=== PATIENT | male | born 1940 | race Two or more races ===

== ENCOUNTER 2018-02-11 14:48 | Inpatient (IN) | payer SELFPAY ==
[2018-02-11 15:43] LABS: Hematocrit 29 % (42-52); Hemoglobin 8.7 g/dl (14.0-18.0); Mean Corpuscular HGB Conc 30 g/dl (31-36); Mean Corpuscular Hemoglobin 18 pg (27-31); Mean Corpuscular Volume 61 fL (80-94); Red Blood Count 4.76 10^6/ul (4.0-5.4); Red Cell Distribution Width 23 % (10.5-15); White Blood Count 4.8 10^3/ul (3.5-10.8)
[2018-02-11 16:39] LABS: Platelet Count 152 10^3/ul (150-450)
[2018-02-11 16:40] LABS: ABS Basophils 0 10^3/ul (0-0.2); ABS Eosinophils 0.1 10^3/ul (0-0.6); ABS Lymphocytes 1.2 10^3/ul (1.0-4.8); ABS Monocytes 0.5 10^3/ul (0-0.8); ABS Neutrophils 2.9 10^3/ul (1.5-7.7); ABS Nucleated RBC 0 10^3/ul; Eosinophil % 2.9 % (0-6); Lymphocyte % 25.3 % (25-47); Nucleated Red Blood Cells % 0
[2018-02-11] MEDS ORDERED: Furosemide IV* 10 MG/ML VIAL (40 MG) IV SLOW PU ONE (17:03)
[2018-02-11] MEDS ORDERED: Nitroglycerin 2% OINT* 1 GM PAK TOPICAL ONE (17:03)
[2018-02-11] MEDS ORDERED: Aspirin 81 mg CHEW TAB* 81 MG TAB.CHEW PO ONE (17:03)
--- NOTE | 2018-02-11 19:16 | ED ---
Lukas Louise Jennifer scribed for Raghavendra Bautista MD on 02/11/18 at 1650 . HPI Chest Pain - HPI Summary HPI Summary: The patient is a 77 year old male who presents with chest pain heaviness for three weeks and non-productive cough for two weeks. Patient reports the chest heaviness is intermittent but can last 3-4 days. He additionally complains of bilateral leg swelling and knee pain. He denies fever, chills. The patient recently moved from [facility]. Patient was accompanied by his and son. He reports he has had fluid in his lungs before. Patients medications include: Flavax, aspirin, omeprazole, NTG, cholesterol medication, Bisoprolol, and Lasix 40 Spironolactone 50. The patient ran out of his water pills about 10-12 days ago. LEVEL 5 CAVEAT: PATIENT DOES NOT SPEAK RUSSIAN. - History of Current Complaint Chief Complaint: EDChestPainROMI Time Seen by Provider: 02/11/18 15:10 Hx Obtained From: P[employer]aker Onset/Duration: Started Weeks Ago - 2-3 weeks, Still Present Timing: Intermittent, Lasting Days - 3-4 days Initial Severity: Severe Current Severity: Severe Pain Intensity: 8 Pain Scale Used: 0-10 Numeric - Allergy/Home Medications Allergies/Adverse Reactions: Allergies Allergy/AdvReac Type Severity Reaction Status Date / Time No Known Allergies Allergy Verified 02/11/18 14:56 Home Medications: Home Medications Aspirin 81 mg CHEW TAB* [Aspirin Low Dose TAB*] 81 mg PO DAILY 02/11/18 [ History Confirmed 02/11/18] Bisoprolol TAB* [Zebeta TAB*] 2.5 mg PO QAM 02/11/18 [History Confirmed 02/11/18 ] Clopidogrel TAB* [Plavix TAB*] 75 mg PO DAILY 02/11/18 [History Confirmed ] Nitroglycerin ER CAP(NF) [Nitro-Time ER CAP (NF)] 2.5 mg PO TID 02/11/18 [ History Confirmed 02/11/18] Omeprazole CAP* [Prilosec CAP* 20 MG] 20 mg PO QAM 02/11/18 [History Confirmed 02/11/18] Rosuvastatin (NF) [Crestor (NF)] 5 mg PO DAILY 02/11/18 [History Confirmed 02/11] PMH/Surg Hx/FS Hx/Imm Hx Endocrine/Hematology History: Denies: Hx Diabetes Cardiovascular History: Reports: Other Cardiovascular Problems/Disorders - Open heart surgery. DENIES Stent Denies: Hx Hypertension - Surgical History Surgery Procedure, Year, and Place: Open heart surgery in [facility], 2007 Infectious Disease History: No Infectious Disease History: Denies: Traveled Outside the [place] in Last 30 Days - Family History Known Family History: Positive: Unknown - Social History Smoking Status (MU): Unknown if Ever Smoked - Additional Comments History Additional Comments: LEVEL 5 CAVEAT: PMH LIMITED BECAUSE PATIENT DOES NOT SPEAK RUSSIAN. Review of Systems Negative: Fever, Chills Negative: Erythema Negative: Sore Throat Positive: Chest Pain Positive: Cough. Negative: Shortness Of Breath Negative: Abdominal Pain, Vomiting, Nausea Negative: dysuria, hematuria Positive: Myalgia - knee pain, Edema - bilateral leg Negative: Rash Neurological: Negative - Dizziness All Other Systems Reviewed And Are Negative: Yes Physical Exam - Summary Physical Exam Summary: Constitutional: Well-developed, Well-nourished, Alert. (-) Distressed Skin: Warm, Dry HENT: Normocephalic; Atraumatic Eyes: Conjunctiva normal Neck: Musculoskeletal ROM normal neck. (-) JVD, (-) Stridor, (-) Tracheal deviation Cardio: Rhythm regular, rate normal, Heart sounds normal; Intact distal pulses; The pedal pulses are 2+ and symmetric. Radial pulses are 2+ and symmetric. (-) Murmur Pulmonary/Chest wall: Effort normal. (-) Respiratory distress, (-) Wheezes, Bibasilar rales Abd: Soft, (-) Tenderness, (-) Distension, (-) Guarding, (-) Rebound Musculoskeletal: 2+ pitting edema bilaterally. Lymph: (-) Cervical adenopathy Neuro: Alert, Oriented x3 Psych: Mood and affect Normal Triage Information Reviewed: Yes Vital Signs On Initial Exam: Initial Vitals Temp Pulse Resp BP Pulse Ox 96.9 F 72 16 131/64 98 02/11/18 14:56 02/11/18 14:56 02/11/18 14:56 02/11/18 14:56 02/11/18 14:56 Vital Signs Reviewed: Yes Diagnostics - Vital Signs Vital Signs Temp Pulse Resp BP Pulse Ox 02/11/18 14:56 96.9 F 72 16 131/64 98 - Laboratory Lab Results: Lab Results 02/11/18 02/11/18 02/11/18 Range/Units 15:30 15:30 15:30 WBC 4.8 (3.5-10.8) 10^3/ul RBC 4.76 (4.0-5.4) 10^6/ul Hgb 8.7 L (14.0-18.0) g/dl Hct 29 L (42-52) % MCV 61 L (80-94) fL MCH 18 L (27-31) pg MCHC 30 L (31-36) g/dl RDW 23 H (10.5-15) % Plt Count 152 (150-450) 10^3/ul MPV 9.0 (7.4-10.4) um3 Neut % (Auto) 61.4 (38-83) % Lymph % (Auto) 25.3 (25-47) % [place] % (Auto) 9.5 H (0-7) % Eos % (Auto) 2.9 (0-6) % Baso % (Auto) 0.9 (0-2) % Absolute Neuts (auto) 2.9 (1.5-7.7) 10^3/ul Absolute Lymphs (auto) 1.2 (1.0-4.8) 10^3/ul Absolute Monos (auto) 0.5 (0-0.8) 10^3/ul Absolute Eos (auto) 0.1 (0-0.6) 10^3/ul Absolute Basos (auto) 0 (0-0.2) 10^3/ul Absolute Nucleated RBC 0 10^3/ul Nucleated RBC % 0 Anisocytosis 2+ Hem Pathologist Commnt Pending Sodium 139 (139-145) mmol/L Potassium 4.4 (3.5-5.0) mmol/L Chloride 106 (101-111) mmol/L Carbon Dioxide 30 (22-32) mmol/L Anion Gap 3 (2-11) mmol/L BUN 6 (6-24) mg/dL Creatinine 0.91 (0.67-1.17) mg/dL Est GFR ( Amer) 104.2 (>60) Est GFR (Non-Af Amer) 81.0 (>60) BUN/Creatinine Ratio 6.6 L (8-20) Glucose 93 (70-100) mg/dL Lactic Acid 0.5 (0.5-2.0) mmol/L Calcium 8.9 (8.6-10.3) mg/dL Total Bilirubin 0.90 (0.2-1.0) mg/dL AST 15 (13-39) U/L ALT 7 (7-52) U/L Alkaline Phosphatase 51 (34-104) U/L Troponin I 0.01 (<0.04) ng/mL Total Protein 7.1 (6.4-8.9) g/dL Albumin 3.9 (3.2-5.2) g/dL Globulin 3.2 (2-4) g/dL Albumin/Globulin Ratio 1.2 (1-3) Result Diagrams: 02/11/18 15:30 02/11/18 15:30 Lab Statement: Any lab studies that have been ordered have been reviewed, and results considered in the medical decision making process. - Radiology CXR Xray Interpretation: No Acute Changes - No acute disease. Radiology Interpretation Completed By: ED Physician - EKG 1453 Cardiac Rate: NL EKG Rhythm: Sinus Rhythm - 71 BPM EKG Interpretation: no STEMI 1509 Cardiac Rate: NL EKG Rhythm: Sinus Rhythm - 70 BPM EKG Interpretation: no STEMI Chest Pain Course/Dx - Course Course Of Treatment: The patient is a 77 year old male who presents with chest pain heaviness for three weeks and non-productive cough for two weeks. In the ED course the patient was given Aspirin, Lasix, and NTG. Two EKGs and CXR were obtained. The patient was diagnosed with HF exacerbation, Mediation non- compliance, and Pulmonary edema. The patient was admitted by Dr. Pulliam. - Diagnoses Provider Diagnoses: CHF exacerbation, Non compliance w medication regimen, Pulmonary edema - Provider Notifications Discussed Care Of Patient With: Isai Pulliam Time Discussed With Above Provider: 17:20 Instructed by Provider To: Admit As Inpatient Discharge - Sign-Out/Discharge Documenting (check all that apply): Discharge/Admit/Transfer - Discharge Plan Condition: Good Disposition: ADMITTED TO [facility] Referrals: No Primary Care Phys,NOPCP [Primary Care Provider] - The documentation as recorded by the Lukas orozco Jennifer accurately reflects the service I personally performed and the decisions made by , Raghavendra Bautista MD.
--- NOTE | 2018-02-11 21:09 | HP ---
H&P (Free Text) History and Physical: PCP: none Date/Time: 02/11/2018 2100 CC: SOB HPI: Mr Bullock is a 77YO [place] male HX CAD/CABG, HLD, & CHF who immig[place] to the [place] and has yet to establish with a PCP. He ran out of furosemide 2-3 weeks ago with interval increase in BLE edema, cough, congestion , & SOB for which he presents. He reports sharp chest pains as well as chest heaviness, but no N/V, sweats, palpitations, light-headedness, F/C, or other issues. He does not speak Belarusian, but his son and [id number] are present to assist his history and translate. PMedHx CAD/CABG HLD CHF Ambulatory Orders Aspirin 81 mg CHEW TAB* [Aspirin Low Dose TAB*] 81 mg PO DAILY 02/11/18 Bisoprolol TAB* [Zebeta TAB*] 2.5 mg PO QAM 02/11/18 Clopidogrel TAB* [Plavix TAB*] 75 mg PO DAILY 02/11/18 Nitroglycerin ER CAP(NF) [Nitro-Time ER CAP (NF)] 2.5 mg PO TID 02/11/18 Omeprazole CAP* [Prilosec CAP* 20 MG] 20 mg PO QAM 02/11/18 Rosuvastatin (NF) [Crestor (NF)] 5 mg PO DAILY 02/11/18 Allergies No Known Allergies Allergy (Verified 02/11/18 14:56) PSurgHx CABG SocHx: former smoker, no alcohol or recreational drugs; lives with his son & [id number]; recent immigrant to the [place]; full code status FamHx: positive for DM & diverticulitis ROS: as above, otherwise reviewed and all were negative vitals: Vital Signs Temp 36.7 C 02/11/18 23:20 Pulse 74 02/11/18 23:20 Resp 24 02/11/18 23:20 BP 117/68 02/11/18 23:20 Pulse Ox 98 02/11/18 23:20 Intake & Output 02/11/18 02/11/18 02/12/18 11:59 23:59 11:59 Weight 85.91 kg Constitutional: NAD, normally developed, obese [place] male HEENM: atraumatic; sclera/conjunctiva: anicteric/clear; hearing: unable to adequately assess; oropharynx: clear, mucosa moist Neck: soft tissue: non-tender; thyroid: normal Pulmonary: B upper airway coarseness, fair to good aeration, no accessory muscle use CV: RR/RR, normal S1S2, no carotid bruit, no jugular venous distention, 2+ B DP/ PT, 1+ BLE edema Abdominal: soft, non-distended, non-tender, no rebound/guarding/rigidity, normoactive bowel sounds, no hepatosplenomegaly or masses, no costovertebral angle tenderness Musculoskeletal: general: non-tender Integumental: normal appearance and texture of exposed skin Psychiatric orientation: AA&O to PPS affect: calm mood: cooperative eye contact: fair to good content: unable to fully assess, family reports intact/reliable responses: timely insight: unable to adequately assess Testing: Lab Results 02/11/18 02/11/18 02/11/18 Range/Units 15:30 15:30 15:30 WBC 4.8 (3.5-10.8) 10^3/ul RBC 4.76 (4.0-5.4) 10^6/ul Hgb 8.7 L (14.0-18.0) g/dl Hct 29 L (42-52) % MCV 61 L (80-94) fL MCH 18 L (27-31) pg MCHC 30 L (31-36) g/dl RDW 23 H (10.5-15) % Plt Count 152 (150-450) 10^3/ul MPV 9.0 (7.4-10.4) um3 Neut % (Auto) 61.4 (38-83) % Lymph % (Auto) 25.3 (25-47) % [place] % (Auto) 9.5 H (0-7) % Eos % (Auto) 2.9 (0-6) % Baso % (Auto) 0.9 (0-2) % Absolute Neuts (auto) 2.9 (1.5-7.7) 10^3/ul Absolute Lymphs (auto) 1.2 (1.0-4.8) 10^3/ul Absolute Monos (auto) 0.5 (0-0.8) 10^3/ul Absolute Eos (auto) 0.1 (0-0.6) 10^3/ul Absolute Basos (auto) 0 (0-0.2) 10^3/ul Absolute Nucleated RBC 0 10^3/ul Nucleated RBC % 0 Anisocytosis 2+ Hem Pathologist Commnt Pending Sodium 139 (139-145) mmol/L Potassium 4.4 (3.5-5.0) mmol/L Chloride 106 (101-111) mmol/L Carbon Dioxide 30 (22-32) mmol/L Anion Gap 3 (2-11) mmol/L BUN 6 (6-24) mg/dL Creatinine 0.91 (0.67-1.17) mg/dL Est GFR ( Amer) 104.2 (>60) Est GFR (Non-Af Amer) 81.0 (>60) BUN/Creatinine Ratio 6.6 L (8-20) Glucose 93 (70-100) mg/dL Lactic Acid 0.5 (0.5-2.0) mmol/L Calcium 8.9 (8.6-10.3) mg/dL Iron (50-212) ug/dL TIBC (250-450) mcg/dL % Saturation (15-55) % Unsat Iron Binding ug/dL Transferrin (203-362) mg/dL Ferritin (24-336) ng/mL Total Bilirubin 0.90 (0.2-1.0) mg/dL AST 15 (13-39) U/L ALT 7 (7-52) U/L Alkaline Phosphatase 51 (34-104) U/L Lactate Dehydrogenase (140-271) U/L Troponin I 0.01 (<0.04) ng/mL B-Natriuretic Peptide ( - 100) pg/mL Total Protein 7.1 (6.4-8.9) g/dL Albumin 3.9 (3.2-5.2) g/dL Globulin 3.2 (2-4) g/dL Albumin/Globulin Ratio 1.2 (1-3) Vitamin B12 (180-914) pg/mL Folate (>3.99) ng/mL 02/11/18 02/11/18 02/11/18 Range/Units 15:30 17:56 21:12 WBC (3.5-10.8) 10^3/ul RBC (4.0-5.4) 10^6/ul Hgb (14.0-18.0) g/dl Hct (42-52) % MCV (80-94) fL MCH (27-31) pg MCHC (31-36) g/dl RDW (10.5-15) % Plt Count (150-450) 10^3/ul MPV (7.4-10.4) um3 Neut % (Auto) (38-83) % Lymph % (Auto) (25-47) % [place] % (Auto) (0-7) % Eos % (Auto) (0-6) % Baso % (Auto) (0-2) % Absolute Neuts (auto) (1.5-7.7) 10^3/ul Absolute Lymphs (auto) (1.0-4.8) 10^3/ul Absolute Monos (auto) (0-0.8) 10^3/ul Absolute Eos (auto) (0-0.6) 10^3/ul Absolute Basos (auto) (0-0.2) 10^3/ul Absolute Nucleated RBC 10^3/ul Nucleated RBC % Anisocytosis Hem Pathologist Commnt Sodium (139-145) mmol/L Potassium (3.5-5.0) mmol/L Chloride (101-111) mmol/L Carbon Dioxide (22-32) mmol/L Anion Gap (2-11) mmol/L BUN (6-24) mg/dL Creatinine (0.67-1.17) mg/dL Est GFR ( Amer) (>60) Est GFR (Non-Af Amer) (>60) BUN/Creatinine Ratio (8-20) Glucose (70-100) mg/dL Lactic Acid (0.5-2.0) mmol/L Calcium (8.6-10.3) mg/dL Iron (50-212) ug/dL TIBC (250-450) mcg/dL % Saturation (15-55) % Unsat Iron Binding ug/dL Transferrin (203-362) mg/dL Ferritin (24-336) ng/mL Total Bilirubin (0.2-1.0) mg/dL AST (13-39) U/L ALT (7-52) U/L Alkaline Phosphatase (34-104) U/L Lactate Dehydrogenase (140-271) U/L Troponin I 0.01 0.01 (<0.04) ng/mL B-Natriuretic Peptide 256 H ( - 100) pg/mL Total Protein (6.4-8.9) g/dL Albumin (3.2-5.2) g/dL Globulin (2-4) g/dL Albumin/Globulin Ratio (1-3) Vitamin B12 (180-914) pg/mL Folate (>3.99) ng/mL 02/11/18 Range/Units 23:41 WBC (3.5-10.8) 10^3/ul RBC (4.0-5.4) 10^6/ul Hgb (14.0-18.0) g/dl Hct (42-52) % MCV (80-94) fL MCH (27-31) pg MCHC (31-36) g/dl RDW (10.5-15) % Plt Count (150-450) 10^3/ul MPV (7.4-10.4) um3 Neut % (Auto) (38-83) % Lymph % (Auto) (25-47) % [place] % (Auto) (0-7) % Eos % (Auto) (0-6) % Baso % (Auto) (0-2) % Absolute Neuts (auto) (1.5-7.7) 10^3/ul Absolute Lymphs (auto) (1.0-4.8) 10^3/ul Absolute Monos (auto) (0-0.8) 10^3/ul Absolute Eos (auto) (0-0.6) 10^3/ul Absolute Basos (auto) (0-0.2) 10^3/ul Absolute Nucleated RBC 10^3/ul Nucleated RBC % Anisocytosis Hem Pathologist Commnt Sodium (139-145) mmol/L Potassium (3.5-5.0) mmol/L Chloride (101-111) mmol/L Carbon Dioxide (22-32) mmol/L Anion Gap (2-11) mmol/L BUN (6-24) mg/dL Creatinine (0.67-1.17) mg/dL Est GFR ( Amer) (>60) Est GFR (Non-Af Amer) (>60) BUN/Creatinine Ratio (8-20) Glucose (70-100) mg/dL Lactic Acid (0.5-2.0) mmol/L Calcium (8.6-10.3) mg/dL Iron 17 L (50-212) ug/dL TIBC 469 H (250-450) mcg/dL % Saturation 4 L (15-55) % Unsat Iron Binding 452 ug/dL Transferrin 335 (203-362) mg/dL Ferritin 2.7 L (24-336) ng/mL Total Bilirubin (0.2-1.0) mg/dL AST (13-39) U/L ALT (7-52) U/L Alkaline Phosphatase (34-104) U/L Lactate Dehydrogenase 142 (140-271) U/L Troponin I (<0.04) ng/mL B-Natriuretic Peptide ( - 100) pg/mL Total Protein (6.4-8.9) g/dL Albumin (3.2-5.2) g/dL Globulin (2-4) g/dL Albumin/Globulin Ratio (1-3) Vitamin B12 164 L (180-914) pg/mL Folate 14.70 (>3.99) ng/mL ECG, personally reviewed: NSR rate 70, anterior Q-waves, no ischemia CXR, personally reviewed: diffuse interstitial edema Impression: 77M HX CAD/CABG, HLD, & CHF presents after running out of furosemide with CHF DIAGNOSIS & PLAN Primary acute on chronic systolic HF : furosemide diuresis : daily weights : strict I&Os : ECHO Wednesday : supplemental oxygen : supportive care Secondary CAD/CABG : continue bisoprolol, aspirin, nitroglycerine ER, & clopidogrel HLD : continue rosuvastatin Admission Rational: inpatient for decompensated HF not anticipated to be asdequately evaluated and controlled w/i 48h to allow for discharge DVTp: heparin SQ & SCDs Code Status: full HCP: son
[2018-02-11] MEDS ORDERED: Acetaminophen TAB* 325 MG PO PRN (21:42)
[2018-02-11] MEDS ORDERED: CMCS: Melatonin (NF) 3 MG TAB PO PRN (21:42)
[2018-02-11] MEDS ORDERED: Albuterol 2.5 MG/3 ML NEB.SOL* (0.083%) INH PRN (21:42)
[2018-02-11] MEDS ORDERED: Ondansetron ODT TAB* 4 MG PO PRN (21:43)
[2018-02-12] MEDS: Heparin VIAL(*) 5000 UNITS/ML VIAL (FIVE THOUSAND) SUBCUT SCH ×3 (05:35→22:10)
[2018-02-12 06:46] LABS: Immature Retic Fraction 0.48; RBC Retic Count 4.89 10^6/ul (4.6-6.2); Red Blood Count 4.89 10^6/ul (4.0-5.4)
[2018-02-12] MEDS ORDERED: Cyanocobalamin INJ * 1,000 MCG/ML VIAL 1 ML VIAL IM ONE (07:00)
[2018-02-12 07:01] LABS: EGFR Non-African American 72.6 (>60); INR 1.23 (0.77-1.02)
[2018-02-12 07:12] LABS: ABS Basophils 0 10^3/ul (0-0.2); ABS Eosinophils 0.1 10^3/ul (0-0.6); ABS Monocytes 0.4 10^3/ul (0-0.8); ABS Nucleated RBC 0 10^3/ul; Corrected Retic Count 1.1 % (0.5-1.5); Eosinophil % 2.9 % (0-6); Hematocrit 30 % (42-52); Hematocrit for Retic CNT 30 % (42-52); Lymphocyte % 22.7 % (25-47); Mean Corpuscular HGB Conc 30 g/dl (31-36); Mean Corpuscular Hemoglobin 18 pg (27-31); Mean Corpuscular Volume 61 fL (80-94); Mean Platelet Volume 8.7 um3 (7.4-10.4); Nucleated Red Blood Cells % 0.1; Platelet Count 149 10^3/ul (150-450); Red Cell Distribution Width 22 % (10.5-15); White Blood Count 4.6 10^3/ul (3.5-10.8)
[2018-02-12] MEDS ORDERED: Pneumococcal *Vac Polyvalent 0.5 ML VIAL IM ONE (09:00)
--- NOTE | 2018-02-12 09:31 | PN ---
Subjective Date of Service: 02/12/18 Interval History: HOSPITALIST PROGRESS NOTE Patient seen and examined at bedside. Care reviewed and d/w Hannah Bean RN. Son acts as retail warehouse associate. States patient is feeling better today, but ankle swelling is still present and breathing is still heavy. No c/o chest pain or palpitations. Son is aware patient is anemic, but doesn't know why. Family History: Unchanged from Admission Social History: Unchanged from Admission Past Medical History: Unchanged from Admission Objective Active Medications: Acetaminophen (Tylenol Tab*) 650 mg PO Q6H PRN PRN Reason: FEVER/PAIN Albuterol (Ventolin 2.5 Mg/3 Ml Neb.Honey*) 2.5 mg INH Q2H PRN PRN Reason: SOB/WHEEZING Aspirin (Aspirin 81 Mg Chew Tab*) 81 mg PO DAILY JUS Bisoprolol Fumarate (Zebeta Tab*) 2.5 mg PO QAM JUS Clopidogrel Bisulfate (Plavix Tab*) 75 mg PO DAILY [facility] Docusate Sodium (Colace Cap*) 200 mg PO BID JUS Furosemide (Lasix Iv*) 40 mg IV 0800,1200 [facility] Heparin Sodium (Porcine) (Heparin Vial(*)) 5,000 units SUBCUT Q8HR [facility] Last Admin: 02/12/18 05:35 Dose: 5,000 units Iron/Vitamin C (Vitron-C (Nf)) 1 tab PO BID [facility] Melatonin (Melatonin (Nf)) 3 mg PO BEDTIME PRN; Protocol PRN Reason: Sleep Omeprazole (Prilosec Cap*) 20 mg PO QAM JUS Ondansetron HCl (Zofran Odt Tab*) 4 mg PO Q6H PRN PRN Reason: n/v Rosuvastatin Calcium (Crestor (Nf)) 5 mg PO DAILY JUS PRN Reason: Protocol Vital Signs - 8 hr 02/12/18 02/12/18 03:51 06:03 Temperature 98.2 F 98.2 F Pulse Rate 75 73 Respiratory 18 18 Rate Blood Pressure 116/61 120/61 (mmHg) O2 Sat by Pulse 97 99 Oximetry Oxygen Devices in Use Now: None Appearance: Elderly gentleman lying in bed in NAD. Eyes: No Scleral Icterus Ears/Nose/Mouth/Throat: Mucous Membranes Moist Neck: Trachea Midline Respiratory: Symmetrical Chest Expansion and Respiratory Effort, - - BS+ bilaterally with bibasilar crackles Cardiovascular: RRR - Normal S1 and S2 Abdominal: NL Sounds; No Tenderness; No Distention Extremities: - - Bilateral mild LE edema Neurological: Alert and Oriented x 3, NL Muscle Strength and Tone Result Diagrams: 02/12/18 06:35 02/12/18 06:35 Assess/Plan/Problems-Billing Assessment: Mr. Bullock is a 77yo M with PMH of CAD s/p CABG, HLD, CHF, who presented to ED with c/o dyspnea and LE edema after running out of diuretics, found to have CHF exacerbation. - Patient Problems (1) Acute CHF Comment: - Patient's son does not have details about his heart disease. - Check echo. - Continue diuresis with Furosemide. - Monitor I/Os and daily weights. (2) Anemia Comment: - Patient has significant iron deficiency and B12 level is also low. - Will replete. - Needs further w/u as outpatient. (3) CAD (coronary artery disease) Comment: - Appears to be stable - continue ASA, Plavix, bisoprolol, and atorvastatin. (4) DVT prophylaxis Comment: - SQ heparin. (5) Full code status Status and Disposition: Inpatient for management of CHF exacerbation.
[2018-02-12] MEDS: Atorvastatin* 10 MG TAB PO SCH (10:41)
[2018-02-12] MEDS: Furosemide IV* 10 MG/ML VIAL (40 MG) IV SCH ×2 (10:41→14:05)
[2018-02-12] MEDS: Clopidogrel TAB* 75 MG PO SCH (10:41)
[2018-02-12] MEDS: Aspirin 81 mg CHEW TAB* 81 MG TAB.CHEW PO SCH (10:43)
[2018-02-12] MEDS: Docusate CAP* 100 MG PO SCH ×2 (10:43→22:09)
[2018-02-12] MEDS: Bisoprolol TAB* 5 MG PO SCH (10:44)
[2018-02-12] MEDS: IRON VITAMIN C PO SCH ×2 (10:58→22:10)
[2018-02-12] MEDS ORDERED: Magnesium Hydroxide LIQ* 30 ML UDC PO PRN (20:46)
[2018-02-12] MEDS: Simethicone TAB* 80 MG TAB.CHEW PO PRN (22:10)
[2018-02-13] MEDS: Heparin VIAL(*) 5000 UNITS/ML VIAL (FIVE THOUSAND) SUBCUT SCH ×3 (05:51→21:00)
[2018-02-13 07:46] LABS: EGFR Non-African American 65.1 (>60)
[2018-02-13] MEDS: Clopidogrel TAB* 75 MG PO SCH (09:45)
[2018-02-13] MEDS: Furosemide IV* 10 MG/ML VIAL (40 MG) IV SCH (09:45)
[2018-02-13] MEDS: Docusate CAP* 100 MG PO SCH ×2 (09:45→20:59)
[2018-02-13] MEDS: Atorvastatin* 10 MG TAB PO SCH ×3 (09:45→13:10)
[2018-02-13] MEDS: Aspirin 81 mg CHEW TAB* 81 MG TAB.CHEW PO SCH (09:45)
[2018-02-13] MEDS: Bisoprolol TAB* 5 MG PO SCH (09:46)
[2018-02-13] MEDS: Pantoprazole TAB (NF) 40 MG TAB PO SCH (09:46)
[2018-02-13] MEDS: IRON VITAMIN C PO SCH ×2 (09:59→20:46)
--- NOTE | 2018-02-13 10:42 | PN ---
Subjective Date of Service: 02/13/18 Interval History: HOSPITALIST PROGRESS NOTE Patient seen and examined at bedside. Care reviewed and d/w with Hannah Bean ASSISTANT SUPERINTENDENT [employer]. GERRY acts as pipefitter welder. He feels better today. Breathing is easier, denies chest pain. He had an episode of LLQ pain after BM yesterday, associated with some nausea. Family History: Unchanged from Admission Social History: Unchanged from Admission Past Medical History: Unchanged from Admission Objective Active Medications: Acetaminophen (Tylenol Tab*) 650 mg PO Q6H PRN PRN Reason: FEVER/PAIN Albuterol (Ventolin 2.5 Mg/3 Ml Neb.Honey*) 2.5 mg INH Q2H PRN PRN Reason: SOB/WHEEZING Aspirin (Aspirin 81 Mg Chew Tab*) 81 mg PO DAILY [facility] Last Admin: 02/13/18 09:45 Dose: 81 mg Atorvastatin Calcium (Lipitor*) 10 mg PO DAILY [facility] PRN Reason: Protocol Last Admin: 02/13/18 09:45 Dose: 10 mg Bisoprolol Fumarate (Zebeta Tab*) 2.5 mg PO QAM [facility] Last Admin: 02/13/18 09:46 Dose: 2.5 mg Clopidogrel Bisulfate (Plavix Tab*) 75 mg PO DAILY [facility] Last Admin: 02/13/18 09:45 Dose: 75 mg Cyanocobalamin (Vitamin B12 Inj *) 1,000 mcg IM ONCE ONE Stop: 02/13/18 10:35 Docusate Sodium (Colace Cap*) 200 mg PO BID [facility] Last Admin: 02/13/18 09:45 Dose: 200 mg Heparin Sodium (Porcine) (Heparin Vial(*)) 5,000 units SUBCUT Q8HR [facility] Last Admin: 02/13/18 05:51 Dose: 5,000 units Iron/Vitamin C (Vitron-C (Nf)) 1 tab PO BID [facility] Last Admin: 02/13/18 09:59 Dose: Not Given Magnesium Hydroxide (Milk Of Magnesia Liq*) 30 ml PO Q6H PRN PRN Reason: CONSTIPATION Melatonin (Melatonin (Nf)) 3 mg PO BEDTIME PRN; Protocol PRN Reason: Sleep Ondansetron HCl (Zofran Odt Tab*) 4 mg PO Q6H PRN PRN Reason: n/v Pantoprazole Sodium (Protonix Tab (Nf)) 40 mg PO QAM [facility] Last Admin: 02/13/18 09:46 Dose: 40 mg Simethicone (Mylicon Tab*) 80 mg PO Q6H PRN PRN Reason: Gas pain Last Admin: 02/12/18 22:10 Dose: 80 mg Vital Signs - 8 hr 02/13/18 02/13/18 03:16 07:29 Temperature 98.3 F Pulse Rate 81 84 Respiratory 18 18 Rate Blood Pressure 105/42 120/59 (mmHg) O2 Sat by Pulse 99 97 Oximetry Oxygen Devices in Use Now: None Appearance: Pleasant elderly gentleman lying in bed in NAD. Eyes: No Scleral Icterus Ears/Nose/Mouth/Throat: Mucous Membranes Moist Neck: Trachea Midline Respiratory: Symmetrical Chest Expansion and Respiratory Effort, - - BS+ bilaterally with scattered rhonchi on the left Cardiovascular: RRR - Normal S1 and S2 Abdominal: - - Soft, obese, mild LLQ tenderness, NG, NR, BS+ Extremities: - - trace ankle edema Neurological: Alert and Oriented x 3, NL Muscle Strength and Tone Result Diagrams: 02/12/18 06:35 02/13/18 06:59 Assess/Plan/Problems-Billing Assessment: Mr. Bullock is a 77yo M with PMH of CAD s/p CABG, HLD, CHF, who presented to ED with c/o dyspnea and LE edema after running out of diuretics, found to have CHF exacerbation. - Patient Problems (1) Abdominal pain Comment: - Associated with nausea. I'm concerned with malignancy as a cause of his significant iron deficiency anemia. - Check CT abd/pelvis. (2) Acute CHF Comment: - Awaiting echo. - Continue diuresis with Furosemide. - Monitor I/Os and daily weights. (3) Anemia Comment: - Patient has significant iron deficiency and B12 level is also low. - Will replete. - Needs further w/u as outpatient. (4) CAD (coronary artery disease) Comment: - Appears to be stable - continue ASA, Plavix, bisoprolol, and atorvastatin. (5) DVT prophylaxis Comment: - SQ heparin. (6) Full code status Status and Disposition: Inpatient for management of CHF exacerbation.
[2018-02-13] MEDS ORDERED: Cyanocobalamin INJ * 1,000 MCG/ML VIAL 1 ML VIAL IM ONE (11:00)
[2018-02-13] MEDS ORDERED: Iohexol 300* (CONTRAST) 10 ML SDV IV ONE (11:12)
--- NOTE | 2018-02-13 11:26 | RAD ---
CLINICAL HISTORY: Left flank pain, anemia COMPARISON: None TECHNIQUE: Multiple contiguous axial CT scans were obtained of the abdomen and pelvis after the administration of intravenous contrast. Coronal and sagittal multiplanar reformations are submitted for review. FINDINGS: LUNG BASES: The lung bases are clear. LIVER: The liver is diffusely low in attenuation compared to the spleen. There are no focal hepatic parenchymal masses. The liver measures 18.3 cm in long axis. BILE DUCTS: There is no intrahepatic or extrahepatic biliary dilatation. GALLBLADDER: The gallbladder is normal, without pericholecystic inflammatory change. PANCREAS: The pancreas is normal, without mass or ductal dilatation. SPLEEN: The spleen measures 14.3 x 5.8 x 6.7 cm in size. UPPER GI TRACT: Evaluation of the gastrointestinal tract is limited by incomplete gastric distention. The upper GI tract is unremarkable. SMALL BOWEL AND MESENTERY: The small bowel is normal in contour, course, and caliber. There is no obstruction or dilatation. COLON: The colon is normal in contour, course, caliber. There is no pericolonic inflammatory change. ADRENALS: There is mild nodularity of the adrenal glands bilaterally suggestive of hyperplasia. KIDNEYS: The kidneys are normal in shape, size, contour, and axis. There is no hydronephrosis or nephrolithiasis. BLADDER: There is mild segmental pressure bladder wall thickening which may be an artifact of incomplete distention. PELVIC ORGANS: The prostate gland is normal. The seminal vesicles are symmetric. AORTA: There is calcific atherosclerotic disease of the abdominal aorta and its branches, without aneurysmal dilatation IVC: Unremarkable LYMPH NODES: There is no lymphadenopathy by size criteria. ABDOMINAL WALL: There is no evidence for abdominal wall hernia. BONES AND SOFT TISSUES: Degenerative changes are noted. OTHER: None IMPRESSION: 1. MILD HEPATOSPLENOMEGALY. 2. FATTY INFILTRATION OF LIVER. 3. ATHEROSCLEROSIS. 4. MILD NODULARITY OF THE ADRENAL GLANDS BILATERALLY SUGGESTING HYPERPLASIA.
[2018-02-13 12:38] LABS: Urine Appearance Clear; Urine Blood Negative (Negative); Urine Color Yellow; Urine Ketones Negative (Negative); Urine Protein Negative (Negative); Urine Urobilinogen Negative (Negative)
[2018-02-13] MEDS: Simethicone TAB* 80 MG TAB.CHEW PO PRN (21:06)
[2018-02-13] MEDS ORDERED: Al Hydrox/Mg Hydrox/Simet LIQ* 30 ML UDC PO PRN (23:48)
[2018-02-14 04:58] LABS: Hematocrit 31 % (42-52); Hemoglobin 9.2 g/dl (14.0-18.0); Mean Corpuscular HGB Conc 29 g/dl (31-36); Mean Corpuscular Hemoglobin 18 pg (27-31); Mean Corpuscular Volume 61 fL (80-94); Red Blood Count 5.15 10^6/ul (4.0-5.4); Red Cell Distribution Width 23 % (10.5-15); White Blood Count 5.8 10^3/ul (3.5-10.8)
[2018-02-14 05:18] LABS: ABS Basophils 0 10^3/ul (0-0.2); ABS Eosinophils 0.1 10^3/ul (0-0.6); ABS Lymphocytes 1.3 10^3/ul (1.0-4.8); ABS Monocytes 0.6 10^3/ul (0-0.8); ABS Neutrophils 3.8 10^3/ul (1.5-7.7); ABS Nucleated RBC 0 10^3/ul; Eosinophil % 2.1 % (0-6); Lymphocyte % 22.2 % (25-47); Mean Platelet Volume 9.2 um3 (7.4-10.4); Nucleated Red Blood Cells % 0; Platelet Count 163 10^3/ul (150-450)
[2018-02-14] MEDS: Heparin VIAL(*) 5000 UNITS/ML VIAL (FIVE THOUSAND) SUBCUT SCH ×3 (06:05→22:59)
[2018-02-14] MEDS ORDERED: Perflutren Lipid Microsphere* 3 ML VIAL ONE (07:36)
--- NOTE | 2018-02-14 07:44 | RAD ---
HISTORY: Chest pain COMPARISONS: None VIEWS: 1: frontal portable view of the chest at 3:25 PM, submitted for review on February 14, 2018 FINDINGS: LINES AND TUBES: None. CARDIOMEDIASTINAL SILHOUETTE: The cardiomediastinal silhouette is normal for portable technique. PLEURA: The costophrenic angles are sharp. No pleural abnormalities are noted. LUNG PARENCHYMA: There is prominence of the central pulmonary vasculature. ABDOMEN: The upper abdomen is clear. There is no subphrenic gas. BONES AND SOFT TISSUES: The patient is status post median sternotomy. The sternotomy wires are dehiscent. IMPRESSION: PULMONARY VASCULAR CONGESTION.
[2018-02-14] MEDS: IRON VITAMIN C PO SCH ×2 (08:56→20:35)
[2018-02-14] MEDS: Furosemide IV* 10 MG/ML VIAL (40 MG) IV SLOW PU SCH (09:30)
[2018-02-14] MEDS: Ferrous Sulfate TAB* 325 MG PO SCH (09:31)
[2018-02-14] MEDS: Pantoprazole TAB (NF) 40 MG TAB PO SCH (09:31)
[2018-02-14] MEDS: Docusate CAP* 100 MG PO SCH ×2 (09:31→20:33)
[2018-02-14] MEDS: Bisoprolol TAB* 5 MG PO SCH (09:31)
[2018-02-14] MEDS: Aspirin 81 mg CHEW TAB* 81 MG TAB.CHEW PO SCH (09:31)
[2018-02-14] MEDS: Atorvastatin* 10 MG TAB PO SCH (09:31)
[2018-02-14] MEDS: Clopidogrel TAB* 75 MG PO SCH (09:31)
--- NOTE | 2018-02-14 09:54 | ECHO ---
Patient: HEIDE OLIVO [facility] Rec#: [id number] : 1940 Date: 02/14/2018 Age: 77y Height: 162.56 cm / 64.0 in Weight: 85.73 kg / 188.9 lbs Sex: M BSA: 1.91 Room#: [facility] Admit Date#: 02/11/2018 Type: Inpatient Referring: Jono Villavicencio MD Reading: Ajith Flores DO Health Technician Hearing: Nkechi Grimaldo [facility] Transthoracic Echocardiogram Indication: CHF BP: 82/45 HR: 68 Rhythm: NSR Findings History: CAD with CABG 2007,HLF,CHF,edema,SOB. Technical Comments: The study is technically limited due to patient body habitus. Definity used to enhance images. Completed at 0830. Left Ventricle: The left ventricular chamber size is normal. Mild concentric left ventricular hypertrophy is observed. Basal interventricular septum shows moderate thickening. There is mildly decreased left ventricular systolic function. The estimated ejection fraction is 40-45%. Post surgical hypokinesis of the interventricular septum is observed consistent with coronary artery bypass. Abnormal left ventricular diastolic function is observed. The mid anterolateral, mid inferoseptal, and apical lateral wall segments are hypokinetic (score 2). The mid anteroseptal, mid anterior, and apical anterior wall segments are akinetic (score 3). There is scarring/thinningof the apical septal, and apical inferiorwall segments (score 5). Overall wallmotion score index is 2.89 Left Atrium: The left atrium is mild to moderately dilated. Right Ventricle: The right ventricular chamber size and systolic function are within normal limits. Right Atrium: The right atrial cavity size is normal. There is evidence of an atrial septal aneurysm. Aortic Valve: The aortic valve is trileaflet. There is mild aortic regurgitation. There is no evidence of aortic stenosis. Mitral Valve: The mitral valve leaflets are mildly thickened. There is a trace of mitral regurgitation. There is no evidence of mitral stenosis. Tricuspid Valve: The tricuspid valve leaflets are normal. There is trace tricuspid regurgitation. Unable to estimate the right ventricular systolic pressure. There is no tricuspid stenosis. Pulmonic Valve: The pulmonic valve appears normal. There is trace to mild pulmonic regurgitation. There is no pulmonic stenosis. Pericardium: There is no significant pericardial effusion. Aorta: There is no dilatation of the ascending aorta. The aortic arch is not well visualized. There is no dilation of the aortic root. Pulmonary Artery: The main pulmonary artery is not well visualized. Venous: The venous system is not well visualized. Contrast: Definity was used to optimize study. 5 ml Definity used. Intravenous contrast was used to enhance endocardial border definition. Conclusions The left ventricular chamber size is normal. Mild concentric left ventricular hypertrophy is observed. Basal interventricular septum shows moderate thickening. There is mildly decreased left ventricular systolic function. The estimated ejection fraction is 40-45% with extensive wall motion abnormalities as described within report of at least a mid LAD territory. The left atrium is mild to moderately dilated. The right ventricular chamber size and systolic function are within normal limits. No significant valvular abnormalities noted Unable to estimate the right ventricular systolic pressure. The study is technically limited due to patient body habitus. Definity used to enhance images. None prior for comparison at time of interpretation Measurements Name Value Normal Range RVIDd (AP) 2D 3.3 cm (0.9 - 2.6) RVDdMajor (2D) 2.8 cm (2.2 - 4.4) RAd ISD 4CH 4.4 cm (3.4 - 4.9) RA (A4C)W 3.6 cm (2.9 - 4.6) IVSd (2D) 1.3 cm (0.6 - 1) LVPWd (2D) 1.3 cm (0.6 - 1) LVIDd (2D) 4.5 cm (3.6 - 5.4) LVIDs (2D) 3.4 cm - LV FS (2D) 24 % (25 - 45) Aortic Annulus 2.2 cm (1.4 - 2.6) Ao root diameter (2D) 3.3 cm (2.1 - 3.5) Ascending Ao 2.3 cm (2.1 - 3.4) LA dimension (AP) 2D 5.2 cm (2.3 - 3.8) LAd ISD 4CH 4.9 cm (2.9 - 5.3) LA ISD 4CH W 2.8 cm (2.5 - 4.5) Name Value Normal Range LA ESV SP 4CH (A/L) 27 ml - LA ESV SP 2CH (A/L) 39 ml - LA ESV BP (A/L) 33 ml - LA ESV BP (A/L) index 17.3 ml/m2 - LA ESV SP 4CH (MOD) 24 ml - LA ESV SP 2CH (MOD) 38 ml - Name Value Normal Range MV E-wave Vmax 0.6 m/sec - MV deceleration time 307 msec - MV A-wave Vmax 0.9 m/sec - MV E:A ratio 0.69 ratio - LV septal e' Vmax 0.05 m/sec - LV lateral e' Vmax 0.06 m/sec - LV E:e' septal ratio 12 ratio - LV E:e' lateral ratio 10 ratio - Name Value Normal Range AV Vmax 1.4 m/sec - AV VTI 35.14 cm - AV peak gradient 7.32 mmHg - AV mean gradient 3.62 mmHg - LVOT Vmax 0.8 m/sec - LVOT VTI 20.9 cm - LVOT peak gradient 2.43 mmHg - LVOT mean gradient 1.3 mmHg - AR PHT 450 msec - AR peak gradient 18.03 mmHg - Name Value Normal Range PV Vmax 1 m/sec - PV peak gradient 3.64 mmHg - Wallmotion BAS Not Seen BA Not Seen BAL Normal HORTENSIA Not Seen BI Not Seen BIS Not Seen MAS Akinetic MA Akinetic MAL Hypokinetic MIL Not Seen NJ Not Seen MIS Hypokinetic Scarring/Thinning AA Akinetic AL Hypokinetic AI Scarring/Thinning APEX Scarring/Thinning
--- NOTE | 2018-02-14 09:57 | PN ---
Subjective Date of Service: 02/14/18 Interval History: HOSPITALIST PROGRESS NOTE Patient seen and examined at bedside. Care reviewed and d/w Brenda Vásquez RN. Son translates. He feels better today. Breathing is improved, was able to ambulate around unit and felt a little dyspneic towards the end of the loop. Denies chest pain or palpitations. Tolerating diet well, appetite is good, denies N/V. LLQ discomfort resolved after he passed gas. Family History: Unchanged from Admission Social History: Unchanged from Admission Past Medical History: Unchanged from Admission Objective Active Medications: Acetaminophen (Tylenol Tab*) 650 mg PO Q6H PRN PRN Reason: FEVER/PAIN Al Hydrox/Mg Hydrox/Simethicone (Maalox Plus*) 30 ml PO Q4H PRN PRN Reason: INDIGESTION Last Admin: 02/14/18 00:07 Dose: 30 ml Albuterol (Ventolin 2.5 Mg/3 Ml Neb.Honey*) 2.5 mg INH Q2H PRN PRN Reason: SOB/WHEEZING Aspirin (Aspirin 81 Mg Chew Tab*) 81 mg PO DAILY [facility] Last Admin: 02/14/18 09:31 Dose: 81 mg Atorvastatin Calcium (Lipitor*) 10 mg PO DAILY [facility] PRN Reason: Protocol Last Admin: 02/14/18 09:31 Dose: 10 mg Bisoprolol Fumarate (Zebeta Tab*) 2.5 mg PO QAM [facility] Last Admin: 02/14/18 09:31 Dose: 2.5 mg Clopidogrel Bisulfate (Plavix Tab*) 75 mg PO DAILY [facility] Last Admin: 02/14/18 09:31 Dose: 75 mg Docusate Sodium (Colace Cap*) 200 mg PO BID [facility] Last Admin: 02/14/18 09:31 Dose: 200 mg Ferrous Sulfate (Ferrous Sulfate Tab*) 325 mg PO DAILY [facility] Last Admin: 02/14/18 09:31 Dose: 325 mg Furosemide (Lasix Iv*) 40 mg IV SLOW PU DAILY [facility] Last Admin: 02/14/18 09:30 Dose: 40 mg Heparin Sodium (Porcine) (Heparin Vial(*)) 5,000 units SUBCUT Q8HR [facility] Last Admin: 02/14/18 06:05 Dose: 5,000 units Iron/Vitamin C (Vitron-C (Nf)) 1 tab PO BID [facility] Last Admin: 02/14/18 08:56 Dose: Not Given Magnesium Hydroxide (Milk Of Magnagnieszka Liq*) 30 ml PO Q6H PRN PRN Reason: CONSTIPATION Melatonin (Melatonin (Nf)) 3 mg PO BEDTIME PRN; Protocol PRN Reason: Sleep Ondansetron HCl (Zofran Odt Tab*) 4 mg PO Q6H PRN PRN Reason: n/v Pantoprazole Sodium (Protonix Tab (Nf)) 40 mg PO QAM [facility] Last Admin: 02/14/18 09:31 Dose: 40 mg Simethicone (Mylicon Tab*) 80 mg PO Q6H PRN PRN Reason: Gas pain Last Admin: 02/13/18 21:06 Dose: 80 mg Vital Signs - 8 hr 02/14/18 02/14/18 02/14/18 03:34 08:00 09:10 Temperature 97.9 F 97.9 F Pulse Rate 80 80 Respiratory 16 16 20 Rate Blood Pressure 154/83 130/57 (mmHg) O2 Sat by Pulse 94 99 Oximetry Oxygen Devices in Use Now: None Appearance: Pleasant elderly male sitting up in bed eating breakfast in NAD. Eyes: No Scleral Icterus Ears/Nose/Mouth/Throat: Mucous Membranes Moist Neck: Trachea Midline Respiratory: Symmetrical Chest Expansion and Respiratory Effort, - - BS+ bilaterally with scattered rhonchi on the left Cardiovascular: RRR - Normal S1 and S2 Extremities: No Edema Neurological: Alert and Oriented x 3, NL Muscle Strength and Tone Result Diagrams: 02/14/18 04:34 02/13/18 06:59 Assess/Plan/Problems-Billing Assessment: Mr. Bullock is a 77yo M with PMH of CAD s/p CABG, HLD, CHF, who presented to ED with c/o dyspnea and LE edema after running out of diuretics, found to have CHF exacerbation. - Patient Problems (1) Abdominal pain Comment: - Associated with nausea. I'm concerned with malignancy as a cause of his significant iron deficiency anemia. - CT abd/pelvis showed no masses, only fatty liver and mild hepatosplenomegaly. - Pain is now resolved. (2) Acute CHF Comment: - Awaiting echo. - Continue diuresis with Furosemide. - Monitor I/Os and daily weights. (3) Anemia Comment: - Patient has significant iron deficiency and B12 level is also low. - Will replete. - Needs further w/u as outpatient. (4) CAD (coronary artery disease) Comment: - Appears to be stable - continue ASA, Plavix, bisoprolol, and atorvastatin. (5) DVT prophylaxis Comment: - SQ heparin. (6) Full code status Status and Disposition: Inpatient for management of CHF exacerbation. Anticipate d/c in AM.
--- NOTE | 2018-02-14 14:55 | CONSULT ---
Subjective Date of Service: 02/14/18 Interval History: Admission Date: 02/11/18 Consult date 02/14/2018 PMD: None Service: Hospitalist CC: Dyspnea Reason for consult: CHF HPI : Mr Bullock is a 77YO [place] man whose son is translating at patients request and preference. I have no prior records and history taken directly from patient. He has what he described as a large heart attack in 2007 followed by CABG. He has had no heart catheterization since then and denies a PCI history. He quit smoking cigarettes at that time and had been seeing a cardiologit in [facility] every 6 months or so. He moved to to live with son and family 3-4 months ago. He has a history of heart failure and ran out of furosemide several weeks ago. In this setting and anemia he was admitted with edema, dyspnea with heavy breathing and cough. He has exertional dyspnea but no chest discomfort. No palpitations or syncope. He has received IV diuresis and symptoms improved. Denies any palpitations or syncope. He has had rectal bleeding in the past but not for over a year. He decreased meat intake after heart attack. 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 FamHx : positive for DM & diverticulitis Medications Active Medications: Acetaminophen (Tylenol Tab*) 650 mg PO Q6H PRN PRN Reason: FEVER/PAIN Al Hydrox/Mg Hydrox/Simethicone (Maalox Plus*) 30 ml PO Q4H PRN PRN Reason: INDIGESTION Last Admin: 02/14/18 00:07 Dose: 30 ml Albuterol (Ventolin 2.5 Mg/3 Ml Neb.Honey*) 2.5 mg INH Q2H PRN PRN Reason: SOB/WHEEZING Aspirin (Aspirin 81 Mg Chew Tab*) 81 mg PO DAILY [facility] Last Admin: 02/14/18 09:31 Dose: 81 mg Atorvastatin Calcium (Lipitor*) 10 mg PO DAILY [facility] PRN Reason: Protocol Last Admin: 02/14/18 09:31 Dose: 10 mg Bisoprolol Fumarate (Zebeta Tab*) 5 mg PO DAILY [facility] Clopidogrel Bisulfate (Plavix Tab*) 75 mg PO DAILY [facility] Last Admin: 02/14/18 09:31 Dose: 75 mg Docusate Sodium (Colace Cap*) 200 mg PO BID [facility] Last Admin: 02/14/18 09:31 Dose: 200 mg Ferrous Sulfate (Ferrous Sulfate Tab*) 325 mg PO DAILY [facility] Last Admin: 02/14/18 09:31 Dose: 325 mg Furosemide (Lasix Iv*) 40 mg IV SLOW PU DAILY [facility] Last Admin: 02/14/18 09:30 Dose: 40 mg Heparin Sodium (Porcine) (Heparin Vial(*)) 5,000 units SUBCUT Q8HR [facility] Last Admin: 02/14/18 13:30 Dose: 5,000 units Iron Sucrose 200 mg/ Sodium (Chloride) 110 mls @ 110 mls/hr IVPB ONCE ONE Stop: 02/14/18 16:29 Iron/Vitamin C (Vitron-C (Nf)) 1 tab PO BID [facility] Last Admin: 02/14/18 08:56 Dose: Not Given Losartan Potassium (Cozaar Tab*) 25 mg PO DAILY [facility] Magnesium Hydroxide (Milk Of Magnesia Liq*) 30 ml PO Q6H PRN PRN Reason: CONSTIPATION Melatonin (Melatonin (Nf)) 3 mg PO BEDTIME PRN; Protocol PRN Reason: Sleep Ondansetron HCl (Zofran Odt Tab*) 4 mg PO Q6H PRN PRN Reason: n/v Pantoprazole Sodium (Protonix Tab (Nf)) 40 mg PO QAM [facility] Last Admin: 02/14/18 09:31 Dose: 40 mg Simethicone (Mylicon Tab*) 80 mg PO Q6H PRN PRN Reason: Gas pain Last Admin: 02/13/18 21:06 Dose: 80 mg Home Medications: Aspirin 81 mg CHEW TAB* [Aspirin Low Dose TAB*] 81 mg PO DAILY 02/11/18 [ History Confirmed 02/11/18] Bisoprolol TAB* [Zebeta TAB*] 2.5 mg PO QAM 02/11/18 [History Confirmed 02/11/18 ] Clopidogrel TAB* [Plavix TAB*] 75 mg PO DAILY 02/11/18 [History Confirmed ] Nitroglycerin ER CAP(NF) [Nitro-Time ER CAP (NF)] 2.5 mg PO TID 02/11/18 [ History Confirmed 02/11/18] Omeprazole CAP* [Prilosec CAP* 20 MG] 20 mg PO QAM 02/11/18 [History Confirmed 02/11/18] Rosuvastatin (NF) [Crestor (NF)] 5 mg PO DAILY 02/11/18 [History Confirmed 02/11] Review of Systems - Measurements Intake and Output: Intake and Output Last 24 Hours 02/12/18 02/13/18 02/14/18 02/15/18 06:59 06:59 06:59 06:59 Intake Total 20 15 120 0 Output Total 350 300 Balance 20 -335 -180 0 Weight 189 lb 11.2 oz 187 lb 3.2 oz 186 lb 1.6 oz Intake: IV Fluids 20 15 NS (0.9%) 20 15 Oral 0 120 0 Output: Urine 350 300 Other: Estimated Void Large # Bowel Movements 0 1 Estimated Stool Amount Small Large # Voids 1 1 - Review of Systems Constitutional Symptoms: Negative: Weakness, Fatigue, Fever Dermatology: Negative: Rash, Skin Lesions HEENT: Negative: Change in Hearing, Vertigo Eyes: Negative: Change in Vision, Double Vision, Glaucoma, Cataracts Thyroid: Negative: Tremor, Frequent Defecation, Palpitations, Primary Hypothyroidism, Primary Hyperthyroidism, Change in Skin/Hair Pulmonary: Positive: Cough, Shortness of Breath, Exercise Intolerance Negative: Sputum, Hemoptysis, Wheezing, COPD, Asthma, Home Oxygen Cardiology: Positive: Shortness of Breath, Swelling of Ankles, Edema Negative: Chest Pain, Palpitations, Peripheral Vascular Dis, Faintness, Syncope, Claudication, Paroxysmal Nocturnal Dyspnea, Orthopnea Gastroenterology: Negative: Abdominal Pain, Nausea, Vomiting, Anorexia, Indigestion, Difficulty Swallowing, Heartburn, Constipation, Diarrhea, Haematemesis, Melena Genital - Urinary: Negative: Dysuria, Nocturia Musculoskeletal: Negative: Joint Pain, Joint Stiffness Endocrinology: Positive: Obesity Negative: Thyroid Problems, Diabetes, Hyperglycemia, Hypoglycemia, Polydipsia , Polyuria Hematologic/Lymphatic: Positive: Anemia, Use of Antiplatelet Drugs Negative: Hx Leukemia, Hx Lymphoma, Use of Anticoagulant Neurology: Negative: Headaches, Migraines, Change in Vision, Diplopia, Dizziness, Change in Balancing, Change in Coordination, Change in Memory, Change in Speech , Change in Sphincter Function, Change in Walking, Numbness\Paresthesiae, Unexplained Weakness, Hx of Stroke\TIA, Hx Seizures Psychiatry: Negative: Unusual Anxiety, Suicidal Ideation Allergic/Immunologic: Negative: Hx Anaphylaxis, Hx Angioedema, Hx HIV, Immunocompromise Review of Systems Statement: All other review of systems negative, unless stated above. Objective Vital Signs: Temp Pulse Resp BP Pulse Ox 97.9 F 80 20 130/57 99 02/14/18 09:10 02/14/18 09:10 02/14/18 09:10 02/14/18 09:10 02/14/18 09:10 Oxygen Devices in Use Now: None Appearance: nad, pleasant, obese Ears/Nose/Mouth/Throat: Clear Oropharnyx, Mucous Membranes Moist Neck: NL Appearance and Movements; NL JVP, Trachea Midline Respiratory: Symmetrical Chest Expansion and Respiratory Effort, - - crackles bases, no wheeze Cardiovascular: RRR, - - trace edema, no significant murmur Abdominal: NL Sounds; No Tenderness; No Distention, - - obese Extremities: No Clubbing, Cyanosis, - - left leg lower vessel harvest Skin: No Rash or Ulcers Neurological: Alert and Oriented x 3 Laboratory Results: 02/14/18 04:34 02/13/18 06:59 INR (Anticoag Therapy) 1.23 (0.77-1.02) H 02/12/18 06:35 APTT 35.5 seconds (26.0-36.3) 02/12/18 06:35 Total Bilirubin 0.90 mg/dL (0.2-1.0) 02/11/18 15:30 AST 15 U/L (13-39) 02/11/18 15:30 ALT 7 U/L (7-52) 02/11/18 15:30 Alkaline Phosphatase 51 U/L (34-104) 02/11/18 15:30 B-Natriuretic Peptide 256 pg/mL (-100) H 02/11/18 15:30 Total Protein 7.1 g/dL (6.4-8.9) 02/11/18 15:30 Albumin 3.9 g/dL (3.2-5.2) 02/11/18 15:30 Globulin 3.2 g/dL (2-4) 02/11/18 15:30 Albumin/Globulin Ratio 1.2 (1-3) 02/11/18 15:30 Triglycerides 102 mg/dL 02/14/18 04:34 Cholesterol 96 mg/dL 02/14/18 04:34 LDL Cholesterol 52 mg/dL 02/14/18 04:34 HDL Cholesterol 24.1 mg/dL 02/14/18 04:34 02/11/18 02/11/18 02/11/18 15:30 17:56 21:12 Troponin I 0.01 0.01 0.01 Labs this admission MCV 61 ferritin 2.7 tsh 4% heme stool negative Diagnostic Imaging: cxr 02/11/2018: pulmonary vascular congestion 02/11/2018: LVEF 40-45% with extensive mid LAD territory old infarction, mild- mod LA dilation, normal RV size and function, no significant valvular abnormalities noted, unable to estimate pasp, definity used EKG Data: EKG 02/11/2018 NSR, LAD, RBBB, old anterior/anterolateral wall WA unchanged on repeat, Assessment/Plan Lucille Bullock is a 77 year old man with a known history of ischemic cardiomyopathy and CHF who presents with ADHF in the setting of running out of medication and iron deficiency anemia, no evidence of ACS, LVEF 40% - Continue prior aspirin and plavix - Increase crestor from 5 to 10 mg po daily (ordered), lipid panel noted - Check [id number] (ordered) - Increase home bisoprolol from 2.5 to 5 mg po daily starting tomorrow (ordered) - Start losartan 25 mg po daily today (ordered) - Change lasix to 20 mg po daily at discharge - Would not give IV fluids for asymptomatic low BP overnight while sleeping - Heart healthy diet reviewed along with sodium reduction - Check BMP within a week of discharge - Give 200 mg IV venofer x 1 now (ordered), continue oral iron supplementation - Patient needs a colonoscopy, ok to hold plavix for this - Patient needs to establish with PCP - Will arrange cardiology follow up. Thank you for allowing me to participate in the cardiovascular care of this patient. Please do not hesitate to contact me with questions or concerns.
[2018-02-14] MEDS: Losartan TAB* 25 MG PO SCH (15:12)
[2018-02-14] MEDS ORDERED: Iron Sucrose* 200 MG in NS 0.9% 100 ML* 100 ML IVPB ONE (15:30)
[2018-02-14] MEDS ORDERED: CMCS Rosuvastatin (NF) 20 MG TAB PO SCH (17:00)
[2018-02-14] MEDS: Simethicone TAB* 80 MG TAB.CHEW PO PRN (20:34)
[2018-02-15] MEDS: Heparin VIAL(*) 5000 UNITS/ML VIAL (FIVE THOUSAND) SUBCUT SCH (05:38)
[2018-02-15 06:33] LABS: EGFR Non-African American 63.1 (>60)
[2018-02-15 08:04] VITALS: BP 102/54
[2018-02-15] MEDS ORDERED: Bisoprolol TAB* 5 MG PO SCH (09:00)
[2018-02-15] MEDS ORDERED: CMC:Rosuvastatin (NF) 10 MG TAB PO SCH (09:00)
--- NOTE | 2018-02-15 09:04 | PN ---
Subjective Date of Service: 02/15/18 Interval History: f/u CHF Patients son is translating at patients request and preference Feels well No CP, dyspnea or lightheadedness wants to go home. Medications Active Medications: Acetaminophen (Tylenol Tab*) 650 mg PO Q6H PRN PRN Reason: FEVER/PAIN Al Hydrox/Mg Hydrox/Simethicone (Maalox Plus*) 30 ml PO Q4H PRN PRN Reason: INDIGESTION Last Admin: 02/14/18 00:07 Dose: 30 ml Albuterol (Ventolin 2.5 Mg/3 Ml Neb.Honey*) 2.5 mg INH Q2H PRN PRN Reason: SOB/WHEEZING Aspirin (Aspirin 81 Mg Chew Tab*) 81 mg PO DAILY [facility] Last Admin: 02/14/18 09:31 Dose: 81 mg Bisoprolol Fumarate (Zebeta Tab*) 5 mg PO DAILY [facility] Clopidogrel Bisulfate (Plavix Tab*) 75 mg PO DAILY [facility] Last Admin: 02/14/18 09:31 Dose: 75 mg Docusate Sodium (Colace Cap*) 200 mg PO BID [facility] Last Admin: 02/14/18 20:33 Dose: 200 mg Ferrous Sulfate (Ferrous Sulfate Tab*) 325 mg PO DAILY [facility] Last Admin: 02/14/18 09:31 Dose: 325 mg Furosemide (Lasix Iv*) 40 mg IV SLOW PU DAILY [facility] Last Admin: 02/14/18 09:30 Dose: 40 mg Heparin Sodium (Porcine) (Heparin Vial(*)) 5,000 units SUBCUT Q8HR [facility] Last Admin: 02/15/18 05:38 Dose: 5,000 units Iron/Vitamin C (Vitron-C (Nf)) 1 tab PO BID [facility] Last Admin: 02/14/18 20:35 Dose: 1 tab Losartan Potassium (Cozaar Tab*) 25 mg PO DAILY [facility] Last Admin: 02/14/18 15:12 Dose: 25 mg Magnesium Hydroxide (Milk Of Magnesia Liq*) 30 ml PO Q6H PRN PRN Reason: CONSTIPATION Melatonin (Melatonin (Nf)) 3 mg PO BEDTIME PRN; Protocol PRN Reason: Sleep Ondansetron HCl (Zofran Odt Tab*) 4 mg PO Q6H PRN PRN Reason: n/v Pantoprazole Sodium (Protonix Tab (Nf)) 40 mg PO QAM [facility] Last Admin: 02/14/18 09:31 Dose: 40 mg Rosuvastatin Calcium (Crestor (Nf)) 10 mg PO DAILY [facility] PRN Reason: Protocol Simethicone (Mylicon Tab*) 80 mg PO Q6H PRN PRN Reason: Gas pain Last Admin: 02/14/18 20:34 Dose: 80 mg Objective Vital Signs: Temp Pulse Resp BP Pulse Ox 98.0 F 72 16 102/54 96 02/15/18 07:42 02/15/18 07:42 02/15/18 08:00 02/15/18 07:42 02/15/18 07:42 Oxygen Devices in Use Now: None Appearance: nad, pleasant, obese Ears/Nose/Mouth/Throat: Clear Oropharnyx, Mucous Membranes Moist Neck: NL Appearance and Movements; NL JVP, Trachea Midline Respiratory: Symmetrical Chest Expansion and Respiratory Effort, - - crackles bases, no wheeze Cardiovascular: RRR, - - 1+ murmur, no edema Abdominal: NL Sounds; No Tenderness; No Distention, - - obese Extremities: No Clubbing, Cyanosis, - - left lower leg vessel harvest Skin: No Rash or Ulcers Neurological: Alert and Oriented x 3 Laboratory Results: 02/14/18 04:34 02/15/18 05:58 INR (Anticoag Therapy) 1.23 (0.77-1.02) H 02/12/18 06:35 APTT 35.5 seconds (26.0-36.3) 02/12/18 06:35 Total Bilirubin 0.90 mg/dL (0.2-1.0) 02/11/18 15:30 AST 15 U/L (13-39) 02/11/18 15:30 ALT 7 U/L (7-52) 02/11/18 15:30 Alkaline Phosphatase 51 U/L (34-104) 02/11/18 15:30 B-Natriuretic Peptide 256 pg/mL (-100) H 02/11/18 15:30 Total Protein 7.1 g/dL (6.4-8.9) 02/11/18 15:30 Albumin 3.9 g/dL (3.2-5.2) 02/11/18 15:30 Globulin 3.2 g/dL (2-4) 02/11/18 15:30 Albumin/Globulin Ratio 1.2 (1-3) 02/11/18 15:30 Triglycerides 102 mg/dL 02/14/18 04:34 Cholesterol 96 mg/dL 02/14/18 04:34 LDL Cholesterol 52 mg/dL 02/14/18 04:34 HDL Cholesterol 24.1 mg/dL 02/14/18 04:34 02/11/18 21:12 Troponin I 0.01 Diagnostic Imaging: cxr 02/11/2018: pulmonary vascular congestion 02/11/2018: LVEF 40-45% with extensive mid LAD territory old infarction, mild- mod LA dilation, normal RV size and function, no significant valvular abnormalities noted, unable to estimate pasp, definity used EKG Data: EKG 02/11/2018 NSR, LAD, RBBB, old anterior/anterolateral wall NC unchanged on repeat, Assessment/Plan Lucille Bullock is a 77 year old man with a known history of NC/CAD/CABG 2008 quit smoking at that time, obesity presents with ADHF in the setting of running out of medication and iron deficiency anemia, no evidence of ACS, LVEF 40%. s/ p IV iron. Has responded to diuresis - Continue prior aspirin and plavix - Continue crestor 10 mg po daily - Continue bisoprolol 5 mg po daily - Continue losartan 25 mg po daily - Change lasix to 20 mg po daily at discharge - Check BMP within a week of discharge - Continue iron supplementation - Patient needs a colonoscopy, ok to hold plavix prior to this when scheduled - Patient needs to establish with PCP - Will arrange cardiology follow up. Thank you for allowing me to participate in the cardiovascular care of this patient. Please do not hesitate to contact me with questions or concerns.
[2018-02-15] MEDS: Furosemide IV* 10 MG/ML VIAL (40 MG) IV SLOW PU SCH (09:18)
[2018-02-15] MEDS: Docusate CAP* 100 MG PO SCH (09:18)
[2018-02-15] MEDS: Losartan TAB* 25 MG PO SCH (09:18)
[2018-02-15] MEDS: Ferrous Sulfate TAB* 325 MG PO SCH (09:19)
[2018-02-15] MEDS: Clopidogrel TAB* 75 MG PO SCH (09:19)
[2018-02-15] MEDS: Pantoprazole TAB (NF) 40 MG TAB PO SCH (09:19)
[2018-02-15] MEDS: Aspirin 81 mg CHEW TAB* 81 MG TAB.CHEW PO SCH (09:19)
[2018-02-15] MEDS: IRON VITAMIN C PO SCH (09:19)
--- NOTE | 2018-02-16 10:23 | DS ---
CC: Dr. Sera Freeman, [facility]; Dr. Ajith Flores. DISCHARGE SUMMARY: DATE OF ADMISSION: 02/11/18 DATE OF DISCHARGE: 02/15/18 CONSULTING GAME ENGINEER: Dr. Ajith Flores. DISCHARGE DIAGNOSES: 1. Acute systolic congestive heart failure exacerbation secondary to noncompliance with diuretics. 2. Iron deficiency/vitamin B12 deficiency anemia. SECONDARY DIAGNOSES: 1. Coronary artery disease, status post coronary artery bypass graft in 2007. 2. Hyperlipidemia. 3. Former tobacco abuse. MEDICATIONS AT TIME OF TRANSFER: 1. Aspirin 81 mg p.o. daily. 2. Bisoprolol 5 mg p.o. daily. 3. Clopidogrel 75 mg p.o. daily. 4. Vitamin B12 1000 mcg p.o. daily. 5. Ferrous sulfate 325 mg p.o. daily. 6. Furosemide 20 mg p.o. daily. 7. Multivitamin with iron 1 tablet p.o. b.i.d. 8. Losartan 25 mg p.o. daily. 9. Omeprazole 20 mg p.o. q.a.m. 10. Rosuvastatin 10 mg p.o. daily. 11. Simethicone 80 mg p.o. q.6 hours p.r.n. gas. HOSPITAL COURSE: Mr. Bullock is a 77-year-old male with past medical history as stated above, who recently immigrated from [facility]. The patient has applied for Medicaid, but this has not yet been approved, so he ran out of furosemide 2 to 3 weeks ago and developed progressive shortness of breath, cough, and lower extremity edema. For more details about his presentation, I refer you to his history and physical. The patient was found to be in CHF exacerbation and he was diuresed with IV furosemide. His weight went down from 194 on admission to 184 on the day of discharge. The patient was seen in consultation by Cardiology (Dr. Flores) and his recommendations included continuation of aspirin and Plavix, increase Crestor to 10 mg, increase bisoprolol to 5 mg, start losartan 25 mg p.o. daily, continue Lasix 20 mg p.o. on discharge. He will need Cardiology followup. 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 Also of note is the fact that the patient was noted to be anemic with microcytic hypochromic anemia. His workup showed low iron of 17 with a very low ferritin of 2.7. Stool for occult blood was negative and a CT of the abdomen and pelvis showed mild nodularity of adrenal glands bilaterally suggesting hyperplasia, but no intestinal findings. The patient will need a colonoscopy as outpatient and as per Dr. Flores it is okay to hold Plavix if the procedure is needed. He was also found to have low vitamin B12 of 164 and this is being replaced. His folate was normal at 14.7. The patient had improvement of his symptoms. He feels that his breathing is back to his usual and he was felt to be stable for discharge at this time. The patient does not yet have a primary care provider, so an appointment was made for him to followup with the [facility] on 02/16/18 at 9:30 a.m. As the patient was started on losartan, he will need a BMP checked next week and the results will be sent to Dr. Sera Freeman and to Dr. Flores. The patient is medically stable to be discharged home today. PHYSICAL EXAMINATION: Vital Signs: Temperature 98.0, heart rate is 72, respiratory rate is 16, oxygen saturation 96% on room air, blood pressure 104/ 54. General: The patient is a pleasant elderly male, sitting up on the bed, in no acute distress. CVS: Normal S1, S2. Regular rate and rhythm. Chest: Breath sounds present bilaterally with scattered rhonchi on the left. Abdomen: Obese, soft, bowel sounds present. Extremities: No edema. Neuro: He is alert, awake, oriented x3. Able to move all 4 extremities. DIET: Heart healthy diet. ACTIVITY: As tolerated. DISPOSITION: To home. STATUS WHILE IN THE HOSPITAL: Inpatient. Please note that at the time of this dictation, hemoglobin A1c level is pending and it should be followed as outpatient. TIME SPENT: Approximately 45 minutes were spent to complete this discharge. [id number]/CPS #: [id number] MTDD
== END 2018-02-15 10:40 | disposition home or self-care (01) | DRG 293 ==
LOC: ED 14:48 → MED 21:09
PROVIDERS: ADMIT Hospitalist; ATTEND Internal Medicine
DX: I50.23 Acute on chronic systolic (congestive) heart failure (principal); I25.10 Atherosclerotic heart disease of native coronary artery without angina pectoris; D50.9 Iron deficiency anemia, unspecified; E78.5 Hyperlipidemia, unspecified; D51.9 Vitamin B12 deficiency anemia, unspecified; K76.0 Fatty (change of) liver, not elsewhere classified; E66.9 Obesity, unspecified; I25.5 Ischemic cardiomyopathy; R16.2 Hepatomegaly with splenomegaly, not elsewhere classified; Z91.14 Patient's other noncompliance with medication regimen; Z79.82 Long term (current) use of aspirin; Z95.1 Presence of aortocoronary bypass graft; Z79.01 Long term (current) use of anticoagulants; Z87.891 Personal history of nicotine dependence; Z83.3 Family history of diabetes mellitus; Z83.79 Family history of other diseases of the digestive system; I25.2 Old myocardial infarction; Z68.31 Body mass index [BMI] 31.0-31.9, adult
CPT/HCPCS: 36415; 71045; 74177; 80048; 80053; 80061; 81003; 82270; 82607; 82728; 82746; 83036; 83540; 83550; 83605; 83615; 83735; 83880; 84484; 85025; 85045; 85060; 85610; 85730; 90732; 93005; 93306; 99284; A9270-GY; C8929; J1644; J1756; J1940; J3420; Q9967

== ENCOUNTER 2018-03-09 13:37 | Emergency (ER) | payer SELFPAY ==
[2018-03-09 13:45] VITALS: BP 146/71
--- NOTE | 2018-03-09 18:36 | ED ---
Christiano Louise Tenzin, scribed for Nico Vogel MD on 03/09/18 at 1418 . Throat Pain/Nasal Congestion - HPI Summary HPI Summary: Pt is a 77 years old male presenting to the ED complaining of vision impair in the left eye since yesterday evening at 18:30. Pt's son reports that his left eye sees something blurry like a "mosquito moving". Pt's son notes that while he is walking yesterday evening he was complaining of not seeing from his left eye. Pt denies any INTERIANO. No alleviating or aggravating factors were noted. Pt has permanent lenses installed in his both eyes and similar symptoms of impair vision in the past was followed with laser cleaning in his eyes. Pt is not on any blood thinners. - History of Current Complaint Chief Complaint: EDEyeProblem Time Seen by Provider: 03/09/18 14:01 Hx Obtained From: Patient, Family/Towel Folder - His son was translating greenlandic to uzbek. Onset/Duration: Still Present - Allergies/Home Medications Allergies/Adverse Reactions: Allergies Allergy/AdvReac Type Severity Reaction Status Date / Time No Known Allergies Allergy Verified 02/11/18 14:56 Home Medications: Home Medications Furosemide TAB* [Lasix TAB*] 20 mg PO BID 03/09/18 [History Confirmed 03/09/18] PMH/Surg Hx/FS Hx/Imm Hx Endocrine/Hematology History: Denies: Hx Diabetes, Hx Thyroid Disease Cardiovascular History: Reports: Hx Congestive Heart Failure, Hx Coronary Artery Disease, Other Cardiovascular Problems/Disorders - Open heart surgery. 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, 2007 Infectious Disease History: No Infectious Disease History: Denies: Traveled Outside the [place] in Last 30 Days - Family History Known Family History: Positive: Other - Pt denies any relevant family history. - Social History Alcohol Use: None Substance Use Type: Reports: None Smoking Status (MU): Former Smoker Type: Cigarettes Have You Smoked in the Last Year: No Review of Systems Eyes: Other - left eye vision impair. Negative: Headache All Other Systems Reviewed And Are Negative: Yes Physical Exam - Summary Physical Exam Summary: General: well-appearing, no pain distress Skin: warm, color reflects adequate perfusion, dry Head: normal Eyes: Both pupils are 2mm reactive, no hyphema, lenses in both sides therefore can't see the fundus, no focal neurological deficit. ENT: normal Neck: supple, nontender Respiratory: CTA, breath sounds present Cardiovascular: RRR Abdomen: soft, nontender Bowel: present Musculoskeletal: normal, strength/ROM intact Neurological: sensory/motor intact, A&O x3 Psychological: affect/mood appropriate Triage Information Reviewed: Yes Vital Signs On Initial Exam: Initial Vitals Temp Pulse Resp BP Pulse Ox 97.5 F 69 14 146/71 98 03/09/18 13:42 03/09/18 13:42 03/09/18 13:42 03/09/18 13:42 03/09/18 13:42 Vital Signs Reviewed: Yes Diagnostics - Vital Signs Vital Signs Temp Pulse Resp BP Pulse Ox 03/09/18 13:42 97.5 F 69 14 146/71 98 - Laboratory Lab Statement: Any lab studies that have been ordered have been reviewed, and results considered in the medical decision making process. EENT Course/Dx - Course Course Of Treatment: DISCUSSED CASE WITH DR PLUMMER, NEUROLOGY. NO FOCAL NEUOLOGIC DEFICIT OTHER THAN LOSS OF VISION IN LEFT EYE SINCE YESTERDAY PM. I ARRANGED FOR THE PATIENT TO BE SEEN TODAY AT [facility]. I DISCUSSED THE NEED TO RETURN TO THE ED IF RECOMMEDED BY THE ELECTRICAL EXPERIMENTAL MECHANIC, IF THERE WERE ANY NEUROLOGIC SX OR WITH ANY QUESTIONS OR CONCERNS. - Diagnoses Provider Diagnoses: Vision loss of left eye Discharge - Sign-Out/Discharge Documenting (check all that apply): Discharge/Admit/Transfer - Discharge Plan Condition: Stable Disposition: HOME Referrals: Barrie Mueller MD [Medical Doctor] - Tyrese Long MD [Primary Care Provider] - Additional Instructions: GO DIRECTLY TO [facility], [phone], FOR FURTHER EVALUATION OF YOUR SUDDEN LOSS OF LEFT EYE VISION. THE ADDRESS IS [address] [place] [address]. RETURN TO THE EMERGENCY DEPARTMENT FOR ANY WORSENING OF YOUR CONDITION OR QUESTIONS OR CONCERNS. - Billing Disposition and Condition Condition: STABLE Disposition: Home The documentation as recorded by the Christiano orozco Tenzin accurately reflects the service I personally performed and the decisions made by me, Nico Vogel MD.
== END 2018-03-09 14:58 | disposition home or self-care (01) ==
LOC: ED 13:37
DX: H54.62 Unqualified visual loss, left eye, normal vision right eye (principal); F17.210 Nicotine dependence, cigarettes, uncomplicated; I25.10 Atherosclerotic heart disease of native coronary artery without angina pectoris; Z87.438 Personal history of other diseases of male genital organs
CPT/HCPCS: 99282

== ENCOUNTER 2018-04-07 14:19 | Emergency (ER) | payer SELFPAY ==
[2018-04-07 14:59] LABS: Hematocrit 48 % (42-52); Hemoglobin 15.7 g/dl (14.0-18.0); Mean Corpuscular HGB Conc 33 g/dl (31-36); Mean Corpuscular Hemoglobin 26 pg (27-31); Mean Corpuscular Volume 81 fL (80-94); Mean Platelet Volume 8.7 um3 (7.4-10.4); Platelet Count 136 10^3/ul (150-450); Red Blood Count 5.97 10^6/ul (4.00-5.40); Red Cell Distribution Width 29 % (10.5-15)
[2018-04-07 15:14] LABS: EGFR Non-African American 86.5 (>60)
--- NOTE | 2018-04-07 15:15 | ED ---
HPI Chest Pain - HPI Summary HPI Summary: 77 y/o male presents to ED c/o CP described as a heaviness starting two days ago. Pain is constant, located across the upper chest. The pain has decreased slightly since it started. Currently the pt has no pain. Associated sx: mild productive cough. Denies fever, SOB. - History of Current Complaint Chief Complaint: EDChestPainROMI Time Seen by Provider: 04/07/18 15:09 Hx Obtained From: Patient Onset/Duration: Started Days Ago Timing: Constant Pain Intensity: 8 Pain Scale Used: 0-10 Numeric Chest Pain Location: Upper Sternal Chest Pain Radiates: No Character: Heaviness Aggravating Factor(s): Nothing Alleviating Factor(s): Nothing Associated Signs and Symptoms: Positive: Chest Pain, Productive Cough. Negative : Shortness of Breath - Additional Pertinent History Primary Care Physician: HUSSAIN - Allergy/Home Medications Allergies/Adverse Reactions: Allergies Allergy/AdvReac Type Severity Reaction Status Date / Time No Known Allergies Allergy Verified 04/07/18 14:30 Home Medications: Home Medications Aspirin EC TAB* [Ecotrin EC Low Dose 81 MG*] 81 mg PO DAILY 04/07/18 [History Confirmed 04/07/18] PMH/Surg Hx/FS Hx/Imm Hx Previously Healthy: No Endocrine/Hematology History: Denies: Hx Diabetes, Hx Thyroid Disease Cardiovascular History: Reports: Hx Congestive Heart Failure, Hx Coronary Artery Disease, Other Cardiovascular Problems/Disorders - Open heart surgery. DENIES Stent Denies: Hx Hypertension, Hx Peripheral Vascular Disease History: Reports: Hx Benign Prostatic Hyperplasia Sensory History: Reports: Hx Eye Prosthesis - Left eye lens implant, Other Sensory Impairments - Left eye lens implant Denies: Hx Cataracts, Hx Contacts or Glasses, Hx Glaucoma, Hx Deafness, Hx Hearing Aid Opthamlomology History: Reports: Hx Eye Prosthesis - Left eye lens implant, Other Sensory Impairments - Left eye lens implant Denies: Hx Cataracts, Hx Contacts or Glasses, Hx Glaucoma Neurological History: Reports: Other Neuro Impairments/Disorders - Tremor of right hand Denies: Hx Headaches, Hx Seizures, Hx Transient Ischemic Attacks (TIA) - Surgical History Surgery Procedure, Year, and Place: Open heart surgery in [facility], 2007 Infectious Disease History: No Infectious Disease History: Denies: Traveled Outside the [place] in Last 30 Days - Family History Known Family History: Positive: Unknown, Other - Pt denies any relevant family history. - Social History Alcohol Use: None Substance Use Type: Reports: None Smoking Status (MU): Former Smoker Type: Cigarettes Have You Smoked in the Last Year: No Review of Systems Negative: Fever, Chills Negative: Erythema Negative: Sore Throat Positive: Chest Pain Positive: Cough. Negative: Shortness Of Breath Negative: Abdominal Pain, Vomiting, Nausea Negative: dysuria, hematuria Negative: Myalgia, Edema Negative: Rash Neurological: Other - No dizziness All Other Systems Reviewed And Are Negative: Yes Physical Exam - Summary Physical Exam Summary: Constitutional: Well-developed, Well-nourished, Alert. (-) Distressed Skin: Warm, Dry HENT: Normocephalic; Atraumatic Eyes: Conjunctiva normal Neck: Musculoskeletal ROM normal neck. (-) JVD, (-) Stridor, (-) Tracheal deviation Cardio: Rhythm regular, rate normal, Heart sounds normal; Intact distal pulses; The pedal pulses are 2+ and symmetric. Radial pulses are 2+ and symmetric. (-) Murmur Pulmonary/Chest wall: Effort normal. (-) Respiratory distress, (-) Wheezes, (-) Rales. Crackles in L lower lung base. Diminished lung sounds. (+) Ronchi. Abd: Soft, (-), epigastric tenderness, (-) Distension, (-) Guarding, (-) Rebound Musculoskeletal: (-) Edema Lymph: (-) Cervical adenopathy Neuro: Alert, Oriented x3 Psych: Mood and affect Normal Triage Information Reviewed: Yes Vital Signs On Initial Exam: Initial Vitals Temp Pulse Resp BP Pulse Ox 97.6 F 72 18 148/77 96 04/07/18 14:27 04/07/18 14:27 04/07/18 14:27 04/07/18 14:27 04/07/18 14:27 Vital Signs Reviewed: Yes Diagnostics - Vital Signs Vital Signs Temp Pulse Resp BP Pulse Ox 04/07/18 14:27 97.6 F 72 18 148/77 96 - Laboratory Lab Results: Lab Results 04/07/18 04/07/18 04/07/18 Range/Units 14:38 14:38 14:38 WBC 6.0 (3.5-10.8) 10^3/ul RBC 5.97 H (4.00-5.40) 10^6/ul Hgb 15.7 (14.0-18.0) g/dl Hct 48 (42-52) % MCV 81 (80-94) fL MCH 26 L (27-31) pg MCHC 33 (31-36) g/dl RDW 29 H (10.5-15) % Plt Count 136 L (150-450) 10^3/ul MPV 8.7 (7.4-10.4) um3 Neut % (Auto) Pending Lymph % (Auto) Pending [place] % (Auto) Pending Eos % (Auto) Pending Baso % (Auto) Pending Absolute Neuts (auto) Pending Absolute Lymphs (auto) Pending Absolute Monos (auto) Pending Absolute Eos (auto) Pending Absolute Basos (auto) Pending Absolute Nucleated RBC Pending Nucleated RBC % Pending Sodium Pending Potassium Pending Chloride Pending Carbon Dioxide Pending Anion Gap Pending BUN Pending Creatinine Pending Est GFR ( Amer) Pending Est GFR (Non-Af Amer) Pending BUN/Creatinine Ratio Pending Glucose Pending Lactic Acid 0.9 (0.5-2.0) mmol/L Calcium Pending Total Bilirubin Pending AST Pending ALT Pending Alkaline Phosphatase Pending Troponin I 0.01 (<0.04) ng/mL Total Protein Pending Albumin Pending Globulin Pending Albumin/Globulin Ratio Pending Result Diagrams: 04/07/18 14:38 04/07/18 14:38 Lab Statement: Any lab studies that have been ordered have been reviewed, and results considered in the medical decision making process. - Radiology CXR Xray Interpretation: No Acute Changes - No active cardiopulmonary disease noted Radiology Interpretation Completed By: Radiologist - EKG 1 EKG Interpretation: 14:37 - SR @ 68 BPM. No change from previous. No STEMI. Re-Evaluation - Re-Evaluation 1 Re-Evaluation Time: 20:09 Comment: discuss plan of care, d/c instructions Chest Pain Course/Dx - Course Assessment/Plan: Evaluated by hospitalist, recommend d/c. Pt will be d/c home, encouraged to come back if symptoms worsen. F/u CCC tomorrow. - Diagnoses Provider Diagnoses: Bronchitis Discharge - Sign-Out/Discharge Documenting (check all that apply): Patient Departure - Discharge Plan Condition: Stable Disposition: HOME Patient Education Materials: Acute Bronchitis (ED) Referrals: Tyrese Long MD [Primary Care Provider] - [facility] [Outside] - 1 Day (F/U TOMORROW. CALL TO MAKE APPOINTMENT) Additional Instructions: RETURN TO THE ED IMMEDIATELY FOR CHANGING/WORSENING OF SYMPTOMS, REGARDLESS OF TIME
[2018-04-07 15:23] LABS: ABS Basophils 0 10^3/ul (0-0.2); ABS Eosinophils 0.1 10^3/ul (0-0.6); ABS Lymphocytes 1.3 10^3/ul (1.0-4.8); ABS Monocytes 0.5 10^3/ul (0-0.8); ABS Neutrophils 4.1 10^3/ul (1.5-7.7); ABS Nucleated RBC 0 10^3/ul; Lymphocyte % 21.4 % (25-47); Nucleated Red Blood Cells % 0
--- NOTE | 2018-04-07 15:47 | RAD ---
Indication: Chest pain. Single frontal view of the chest performed at 1533 hours was reviewed. Comparison is made with previous exam dated February 11, 2018. No mediastinal shift is noted. Heart is of normal size and configuration. Lung frias appear clear. Patient is status post transsternal thoracotomy. IMPRESSION: NO ACTIVE CARDIOPULMONARY DISEASE IS NOTED.
--- OUTSIDE RECORDS SUMMARY | 2018-04-07 15:48 | XMS REPORT ---
:1940 External Reference #:[id number] Author Organization [facility] Address [address] [place] [address] Phone [phone] Care Team Providers Name Role Phone Tyrese Long M.D. Primary Care Physician Unavailable Problems Date Description Provider Status Onset: 03/09/2018 Vitreous hemorrhage Yenny Gutierrez O.D. Active Family History Date Family Member(s) Problem(s) Comments Father No Current Problems Mother No Current Problems Social History Type Date Description Comments Marital Status Legal Status: Occupation [employer] Work Status Retired ETOH Use Denies alcohol use Smoking Patient is a former smoker Daily Caffeine Consumes on average 1 cup of hot tea per day Allergies, Adverse Reactions, Alerts Date Description Reaction Status Severity Comments 03/09/2018 NKDA active Medications Medication Date Status Form Strength Qnty SIG Indications Ordering Provider Simethicone 00/ Active Chewtabs 80mg Chew And Unknown 0000 Swallow 1 Tablet By Mouth Every 6 Hours as Needed For Gas [place] Rosuvastatin /00/ Active Tablets 10mg Take 1 Unknown Calcium 0000 Tablet By Mouth Every Day Omeprazole 00/00/ Active Capsules 20mg Take [address] Capsule By Mouth Every Day In The Morning Losartan 00/00/ Active Tablets 25mg Take 1 Unknown Potassium 0000 Tablet By Mouth Every Day Furosemide 00/00/ Active Tablets 20mg Take 1 Unknown 0000 Tablet By Mouth Every Day Ferrous Sulfate 0000/ Active Tablets 325(65Fe) Take 1 Unknown 0000 mg Tablet By Mouth Every Day Clopidogrel 00/00/ Active Tablets 75mg Take 1 Unknown Bisulfate 0000 Tablet By Mouth Every Day Bisoprolol 0000/ Active Tablets 5mg Take 1 Unknown Fumarate 0000 Tablet By Mouth Every Day Aspirin / Active Chewtabs 81mg Chew 1 Unknown 0000 Tablet By Mouth Every Day Nitroglycerin ER / Active Capsules 2.5mg Take 1 Unknown 0000 ER Capsule By Mouth Three Times Daily Rosuvastatin / Active Tablets 5mg Take 1 Unknown Calcium 0000 Tablet By Mouth Every Day Vitamin B 12 / Active Lozenges 100mcg Unknown 0000 Vitron-C / Active Tablets 65-125mg Unknown 0000 Results Description No Information Procedures Description No Information Plan of Care 03/09/2018 - Yenny Gutierrez O.D.H43.12 Vitreous hemorrhage, left eyeComments: Smoking can increase the risk of developing or worsening any eye related disease , as well as affect your overall health. If you are a smoker, we strongly recommend that you quit.If you are not a smoker, we strongly recommend that you do not start. You have bleeding in the back of your eye. We are setting up a referral to a retina specialist for youFollow up:Next available eval with [facility]
[2018-04-07] MEDS ORDERED: Albuterol/Ipratropium NEB.SOL* Albuterol 2.5 MG/Ipratropium 0.5 MG 3 ML INH ONE (18:55)
[2018-04-07] MEDS ORDERED: DOXYcycline CAP(*) 100 MG PO ONE (19:33)
[2018-04-07] MEDS ORDERED: Albuterol HFA INHALER* 8 gm MDI INH ONE (19:58)
[2018-04-07] MEDS ORDERED: Dexamethasone Oral Solution* 1 MG/ML 10 ML UDC (10 MG) PO ONE (20:13)
[2018-04-07] MEDS ORDERED: Ibuprofen TAB* 600 MG PO ONE (20:13)
[2018-04-07 20:16] VITALS: BP 148/78
--- NOTE | 2018-04-07 21:24 | CONS ---
CC: Dr. Bautista; Dr. Long; Dr. Freeman from [facility]; Dr. Hairston; Dr. Flores * CONSULTATION REPORT: DATE OF CONSULTATION: 04/07/18 REQUESTED BY: Dr. Bautista, for possibility of admission. PRIMARY CARE PROVIDER: Dr. Long. REASON FOR CONSULTATION: "Rattling in the chest and chest pain." HISTORY OF PRESENT ILLNESS: Lucille Bullock is a 77-year-old male with a history of coronary artery bypass grafting in 2007 as well as history of systolic CHF for which he was hospitalized at our facility in January 2018. Since then, he is still waiting for his Medicaid. He was seen by Dr. Freeman in [facility] and he continues his medications as prescribed at discharge from our facility at the end of January 2018. He stated for the past several days he had been feeling rattling in his chest and chest heaviness. He denies chest pain per se, but he states that his breathing is heavy. His weight had been unchanged in between 185 to 190 pounds. He has been taking his medications as prescribed and he has not gained any significant amount of weight. Dr. Bautista requested for the patient to be evaluated for possibility of observation with a stress test in the morning. PAST MEDICAL HISTORY: 1. History of systolic CHF with EF of 45%. 2. History of coronary artery disease, status post coronary artery bypass graft in 2007. 3. Hyperlipidemia. 4. History of tobacco abuse in the past. MEDICATIONS: At home include: 1. Aspirin 81 mg daily. 2. Bisoprolol 5 mg daily. 3. Plavix 75 mg daily. 4. Vitamin B12 of 1000 mcg daily. 5. Ferrous sulfate 325 mg daily. 6. Furosemide 20 mg daily. 7. Multivitamin 1 tablet daily. 8. Losartan 25 mg daily. 9. Omeprazole 20 mg daily. 10. Rosuvastatin 10 mg daily. 11. Simethicone 80 mg every 6 hours on a p.r.n. basis. FAMILY HISTORY: Positive for diabetes and diverticulitis. SOCIAL HISTORY: The patient denies any current alcohol, tobacco or drug use. He lives with his son and [id number]. He has recently emigrated to the from [facility] in September 2017. They are still in the process of trying to get Medicaid. He is a former smoker. He is a full code status. REVIEW OF SYSTEMS: Please see history of present illness. All the remaining 12 systems were reviewed with the patient and were otherwise negative. PHYSICAL EXAM: Vital Signs: Blood pressure of 148/77, heart rate of 72 and regular, respiratory rate 18, oxygen saturation 96% on room air. General: The patient is a very pleasant 77-year-old male, who is in no acute distress. Alert , awake, and oriented x3. The patient originally is from [facility]. He speaks very little Polish. His son, present in the room, is translating. HEENT: Head is atraumatic, normocephalic. Eyes: Pupils are equal and reactive to light and accommodation. Oropharynx clear. Mucosa moist. Neck: Supple. No JVD. No bruits bilaterally. Cardiovascular: Regular rate and rhythm. No murmur. Respiratory: Rhonchi in bilateral upper mid lung on auscultation. No rales. Abdomen: Protuberant, soft, nontender. Bowel sounds are present in all 4 quadrants. Extremities: There is trace bilateral ankle edema. Pulses are +2 bilaterally. There is no clubbing or cyanosis. Neuro Evaluation: Speech clear. Cranial nerves II through XII are grossly intact. Motor strength is 5/5 bilaterally. DIAGNOSTIC STUDIES/LAB DATA: Laboratory data showed troponin was 0.01 x2. His sodium was 139, potassium 3.8, chloride 103, carbon dioxide 30, BUN 7, creatinine 0.86. Liver function tests were unremarkable. CBC: White blood cell count 6.0, hemoglobin 15.7, hematocrit 48, and platelets of 136,000. The patient's EKG showed right bundle-branch block similar to prior EKG from January 2018. The patient's portable chest x-ray, impression: "No active cardiopulmonary disease is noted." ASSESSMENT AND PLAN: 1. The patient appears to have symptoms of bronchitis with rhonchi on bilateral lung evaluation. He complains of no chest pain per se, but heaviness when breathing. I do not believe there is congestive heart failure suspicion as brain natriuretic peptide was markedly lower than before at 106 today. His x -ray is also unremarkable. His weight also has been unchanged and the patient had been compliant with his medications. At this point, the patient will be treated with doxycycline since this is a generic medication and easily obtainable in this patient with no insurance, whose son still pays [employer] for his medications. 2. In regards to the patient's cardiac disease, the patient's troponins had been negative twice today. His EKG is unchanged. I do not believe it is a cardiac problem per se. I also do not think he would be the greatest candidate for stress test as if he is currently ill with bronchitis. I did offer for the patient to stay overnight, but the patient and the patient's son would prefer to go home. They have concerns about their piling up medical bills and they are still working out on obtaining health insurance for the patient. At this point , I discussed the case with Dr. Bautista who agrees with discharging the patient home on doxycycline. The patient is asked to observe for further symptoms and if he does not get better within the next couple of days, to come back either to the emergency department or to [facility] for further evaluation. TIME SPENT: Approximately 55 minutes were spent on consultation with the patient. [id number]/CPS #: [id number]
== END 2018-04-07 20:44 | disposition home or self-care (01) ==
LOC: ED 14:19
DX: J40 Bronchitis, not specified as acute or chronic (principal); R07.9 Chest pain, unspecified; I50.20 Unspecified systolic (congestive) heart failure; I25.10 Atherosclerotic heart disease of native coronary artery without angina pectoris; Z87.891 Personal history of nicotine dependence; Z79.82 Long term (current) use of aspirin; Z79.02 Long term (current) use of antithrombotics/antiplatelets; Z79.899 Other long term (current) drug therapy
CPT/HCPCS: 36415; 71045; 80053; 83605; 83880; 84484; 85025; 93005; 99284; A9270-GY

== ENCOUNTER 2019-09-16 15:13 | Emergency (ER) | payer MEDICAID, OTHER ==
--- NOTE | 2019-09-16 15:30 | ED ---
Throat Pain/Nasal Congestion - HPI Summary HPI Summary: This patient is a 79 year old male presenting to [facility] with a chief complaint of dental pain. He states his bottom middle tooth is painful and says he was trying to eat something when tooth became loose. He took Tyelonol half an hour ago to no relief. He saw a dentist who wanted to pull his teeth and he did not want to do so. - History of Current Complaint Chief Complaint: EDDentalPain Time Seen by Provider: 09/16/19 15:17 Hx Obtained From: Patient Onset/Duration: Lasting Hours - Allergies/Home Medications Allergies/Adverse Reactions: Allergies Allergy/AdvReac Type Severity Reaction Status Date / Time No Known Allergies Allergy Verified 09/16/19 15:19 PMH/Surg Hx/FS Hx/Imm Hx Endocrine/Hematology History: Denies: Hx Diabetes, Hx Thyroid Disease Cardiovascular History: Reports: Hx Congestive Heart Failure, Hx Coronary Artery Disease, Other Cardiovascular Problems/Disorders - Open heart surgery. 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, Other Sensory Impairments - Left eye lens implant Denies: Hx Cataracts, Hx Contacts or Glasses, Hx Glaucoma Neurological History: Reports: Other Neuro Impairments/Disorders - Tremor of right hand Denies: Hx Headaches, Hx Seizures, Hx Transient Ischemic Attacks (TIA) - Surgical History Surgery Procedure, Year, and Place: Open heart surgery in [facility], 2007 Infectious Disease History: No Infectious Disease History: Denies: Traveled Outside the [place] in Last 30 Days - Family History Known Family History: Negative: Cardiac Disease - Social History Alcohol Use: None Substance Use Type: Reports: None Smoking Status (MU): Former Smoker Type: Cigarettes Have You Smoked in the Last Year: No Review of Systems Negative: Fever Positive: Dental Pain All Other Systems Reviewed And Are Negative: Yes Physical Exam - Summary Physical Exam Summary: Constitutional: Well-developed, Well-nourished, Alert. (-) Distressed Skin: Warm, Dry HENT: Normocephalic; Atraumatic. Significant dental decay/dental erosion. no sublingual swelling. No facial erythema. No cervical adenopathy. Eyes: Conjunctiva normal Neck: Musculoskeletal ROM normal neck. (-) JVD, (-) Stridor, (-) Tracheal deviation Cardio: Rhythm regular, rate normal, Heart sounds normal; Intact distal pulses; Radial pulses are 2+ and symmetric. (-) Murmur Pulmonary/Chest wall: Effort normal. (-) Respiratory distress, (-) Wheezes, (-) Rales Abd: Soft, (-) tenderness, (-) Distension, (-) Guarding, (-) Rebound Musculoskeletal: (-) Edema Lymph: (-) Cervical adenopathy Neuro: Alert, Oriented x3 Psych: Mood and affect Normal Triage Information Reviewed: Yes Vital Signs On Initial Exam: Initial Vitals Temp Pulse Resp BP Pulse Ox 99.7 F 100 16 148/88 97 09/16/19 15:15 09/16/19 15:15 09/16/19 15:15 09/16/19 15:15 09/16/19 15:15 Vital Signs Reviewed: Yes Procedures - Sedation Patient Received Moderate/Deep Sedation with Procedure: No Diagnostics - Vital Signs Vital Signs Temp Pulse Resp BP Pulse Ox 09/16/19 15:15 99.7 F 100 16 148/88 97 - Laboratory Lab Statement: Any lab studies that have been ordered have been reviewed, and results considered in the medical decision making process. EENT Course/Dx - Course Course Of Treatment: This patient is a 79 year old male presenting to [facility] with a chief complaint of dental pain. Patient was administered ibuprofen, lidocaine, and penicillin. Patient was instructed to see a dentist. Plan for discharge was discussed with the patient and he was agreeable with this plan. - Diagnoses Provider Diagnoses: Pain, dental Discharge ED - Sign-Out/Discharge Documenting (check all that apply): Patient Departure - Discharge - Discharge Plan Condition: Stable Disposition: HOME Patient Education Materials: Toothache (ED) Referrals: Joe Alcaraz MD [Primary Care Provider] - Additional Instructions: Follow up with a dentist. - Attestation Statements Document Initiated by Scribe: Yes Documenting Scribe: Lele Vargas Provider For Whom Scribe is Documenting (Include Credential): Jamie Newton, Scribe Attestation: Lele Louise, scribed for Jamie Newton, on 09/16/19 at 1528. Status of Scribe Document: Ready
[2019-09-16] MEDS ORDERED: Ibuprofen TAB* 400 MG PO ONE (15:32)
[2019-09-16] MEDS ORDERED: Lidocaine 2% VISCOUS* 15 ML UDC PO ONE (15:32)
[2019-09-16] MEDS ORDERED: Penicillin VK TAB* 250 MG PO ONE (15:34)
[2019-09-16] MEDS ORDERED: Acetaminophen TAB* 325 MG PO ONE (16:15)
[2019-09-16 16:24] VITALS: BP 146/78
== END 2019-09-16 16:30 | disposition home or self-care (01) ==
LOC: ED 15:13
DX: K08.89 Other specified disorders of teeth and supporting structures (principal); I50.9 Heart failure, unspecified; I25.10 Atherosclerotic heart disease of native coronary artery without angina pectoris; N40.0 Benign prostatic hyperplasia without lower urinary tract symptoms; Z87.891 Personal history of nicotine dependence
CPT/HCPCS: 99281; A9270-GY